=== PATIENT | female | born 1980 | race Caucasian/White ===

== ENCOUNTER 2016-10-12 08:35 | Emergency (ER) | payer MEDICAID ==
[~2016-10-12] VITALS: Ht 165.1 cm; Wt 81.6 kg
[~2016-10-12 08:35] MED LIST: BENZ56AE TP; CEPH250T PO; CEPH500C PO; CLIN300C3 PO; CLN150C PO; CODE-54 PO; IBUP-15 PO; Ibuprofen PO; NAPR-243 PO; OXYC-12 PO; PREN1TAB19 PO; PREN1TAB39 PO; TRM50T PO
[2016-10-12] MEDS ORDERED: LIDOCAINE 1% INJ 20 ML (XYLOCAINE) VIAL ONE (08:52)
[2016-10-12] MEDS ORDERED: fentaNYL INJECTION 100 MCG/2 ML AMP IM ONE (09:00)
[2016-10-12] MEDS ORDERED: fentaNYL INJECTION 100 MCG/2 ML AMP IVP ONE (09:00)
[2016-10-12] MEDS ORDERED: DICL500C PO (09:33)
--- NOTE | 2016-10-12 09:34 | ED Integumentary General ---
General Chief Complaint: Skin/Wound Problems Stated Complaint: POSS ABSCESS UNDER LEFT ARM Nursing Triage Note: ABCESS UNDER L AXILLA, REDDEND PAINFUL AND WARM TO TOUCH Source: patient Exam Limitations: no limitations History of Present Illness Time seen by provider: 08:50 Initial Comments This 36-year-old woman presents to the emergency room with abscess in the left axilla 3 days. She denies any fever. She is currently at about 36 weeks gestational age. Allergies and Home Medications Allergies Coded Allergies: No Known Drug Allergies (Verified , 02/14/08) Home Medications Dicloxacillin Sodium 500 Mg Capsule #28 500 MG PO QID Prescribed by: REMINGTON ALEJANDRE on 10/12/16 0933 Vit/Fe Fumarate/Fa 1 Each Tablet 1 EACH PO DAILY (Reported) Constitutional: no symptoms reported EENTM: no symptoms reported Respiratory: no symptoms reported Cardiovascular: no symptoms reported Gastrointestinal: no symptoms reported Genitourinary: no symptoms reported : Yes Expected Date of Delivery: Nov 08, 2016 Musculoskeletal: no symptoms reported Skin: see HPI Psychiatric/Neurological: No Symptoms Reported Endocrine: No Symptoms Reported Past Czsnymi-Gwopei-Wfydiq Hx Patient Social History Alcohol Use: Denies Use Recreational Drug Use: No Smoking Status: Current Everyday Smoker Recent Foreign Travel: No Contact w/Someone Who Travel: No Recent Infectious Disease Expo: No Recent Hopitalizations: Yes (2 yrs ago at [place], pulled teeth, childbirth) Immunizations Up To Date Tetanus Booster (TDap): Less than 5yrs Date of Influenza Vaccine: Jun 03, 2014 Surgeries HX Surgeries: Yes (LEEP) Respiratory Hx Respiratory Disorders: No Cardiovascular Hx Cardiac Disorders: No Neurological Hx Neurological Disorders: No Reproductive System : Yes Hx : 4 Hx Para: 3 Hx Total # of Abortions (Spona: 0 Hx Reproductive Disorders: No Genitourinary Hx Genitourinary Disorders: No Gastrointestinal Hx Gastrointestinal Disorders: No Musculoskeletal Hx Musculoskeletal Disorders: No Endocrine Hx Endocrine Disorders: No HEENT HX ENT Disorders: No Cancer Hx Cancer: Yes Cancer: Cervical (cervical dysplasia) Psychosocial Hx Psychiatric Problems: No Integumentary HX Skin/Integumentary Disorder: No Blood Transfusions Hx Blood Disorders: No Adverse Reaction to a Blood Tr: No Family Medical History Family Medial History: Arthritis Cardiovascular disease Diabetes mellitus FH: cancer Respiratory disorder Physical Exam Vital Signs Vital Sign - Last 12Hours 10/12/16 08:40 Temp 96.3 Pulse 106 Resp 20 B/P 134/73 Pulse Ox 98 Capillary Refill : Less Than 3 Seconds General Appearance: WD/WN no apparent distress HEENT: PERRL/EOMI normal ENT inspection Cardiovascular: regular rate, rhythm no edema no murmur Respiratory: lungs clear normal breath sounds no respiratory distress no accessory muscle use Gastrointestinal: normal bowel sounds non tender soft other (appropriately gravid) Extremities: normal inspection no pedal edema Neurologic/Psychiatric: payroll processor II-XII nml as tested no motor/sensory deficits alert normal mood/affect oriented x 3 Skin: normal color warm/dry other (large abscess 2-3 cm in size in the left axilla with overlying localized erythema) Skin Problem Character: abscess, erythema I&D : Blade Size: 11 Progress Fentanyl 75 g IM was administered 4 pretreatment. Skin was prepped with chlorhexidine. 1 mL of lidocaine was injected into the overlying skin. A 1.5 cm incision was made over the center of the abscess. A significant amount of purulent material was expressed from the wound. Culture was collected. Wound was explored with hemostats and loculations broken. Very little remaining material was expressed. There is a significant amount of edema and induration around the abscess. Membranous tissue raised the question of possible cyst. Patient tolerated the procedure well. Wound was irrigated with 60 mL of normal saline and dressed. Progress/Results/Core Measures Results/Orders My Orders Orders-REMINGTON STREET MD Lidocaine 1% Injection (Xylocaine 1% Inj (10/12/16 08:52) Fentanyl Injection (Sublimaze Injection (10/12/16 09:00) Wound Culture (10/12/16 09:00) Fentanyl Injection (Sublimaze Injection (10/12/16 09:00) Medications Given in ED Current Medications Medications Dose Ordered Sig/Akira Route Start Time Stop Time Status Last Admin Dose Admin Fentanyl Citrate 75 mcg ONCE ONCE IM 10/12/16 09:00 10/12/16 09:02 DC 10/12/16 09:09 75 MCG Lidocaine HCl 20 ml STK-MED ONCE .ROUTE 10/12/16 08:52 10/12/16 08:56 DC 10/12/16 09:10 10 ML Vital Signs/I&O Vital Sign - Last 12Hours 10/12/16 10/12/16 08:40 09:45 Temp 96.3 Pulse 106 88 Resp 20 20 B/P 134/73 Pulse Ox 98 97 Blood Pressure Mean: 93 Departure Impression Impression: Primary Impression: Cellulitis and abscess of unspecified site Additional Impression: Encounter for incision and drainage procedure Disposition: 01 HOME, SELF-CARE Condition: Improved Departure-Patient Inst. Decision time for Depature: 09:20 Referrals: BALDOMERO MAY DO (PCP/Family) Primary Care Physician Patient Instructions: Abscess Incision and Drainage (DC) Add. Discharge Instructions: Complete your antibiotics as prescribed. Use warm compresses or soak in warm soapy bath water 2 or 3 times a day for the next few days to encourage draining. Return to care if symptoms worsen. If you continued to have fullness or bulging in this area after wound heals and infection resolves, you may have a cyst that needs to be removed. Follow-up with your primary care provider in that case. Follow-up with your doctor in 48 hours to review the wound culture and ensure your antibiotics are appropriate. Use Tylenol for pain. You may use up to 1000 mg every 6 hours as needed for pain. Ibuprofen may not be used after 36 weeks gestational age in . All discharge instructions reviewed with patient and/or family. Voiced understanding. Scripts Dicloxacillin Sodium 500 Mg [id number] Mg PO QID #28 CAP Prov:REMINGTON STREET MD 10/12/16 Copy Copies To 1: BALDOMERO MAY JOSHUA T MD Oct 12, 2016 09:34
[2016-10-12 09:45] VITALS: BP 110/62
[2016-11-01] MEDS ORDERED: IBUP-1773 PO (08:35)
== END 2016-10-12 09:45 | disposition home or self-care (01) ==
LOC: EDUNIT# 08:35 → ER 08:41
DX: L02.412 Cutaneous abscess of left axilla (principal); O99.333 Smoking (tobacco) complicating pregnancy, third trimester; F17.210 Nicotine dependence, cigarettes, uncomplicated; Z3A.36 36 weeks gestation of pregnancy
CPT/HCPCS: 10060; 87070; 87205; 96372

== ENCOUNTER 2016-10-30 20:35 | Inpatient (IN) | payer MEDICAID ==
[~2016-10-30] VITALS: Ht 165.1 cm; Wt 82.2 kg
[2016-10-30] VITALS (7 sets, daily range): BP systolic 108–141; BP diastolic 57–68
[~2016-10-30 20:35] MED LIST changes: +DICL500C PO
[2016-10-30 20:57] LABS: BILIRUBIN,URINE NEGATIVE (NEGATIVE); KETONES,URINE 3+ (NEGATIVE); LEUKOCYTE ESTERASE ,URINE 2+ (NEGATIVE); NITRITE,URINE NEGATIVE (NEGATIVE); PH,URINE 6.5 (5-9); PROTEIN,URINE NEGATIVE (NEGATIVE); UROBILINOGEN,URINE NORMAL (NORMAL)
[2016-10-30] MEDS ORDERED: D5 LR IV SOLUTION 1,000 ML IV ONE (21:04)
[2016-10-30] MEDS ORDERED: D5 LR IV SOLUTION 1,000 ML IV SCH (21:14)
[2016-10-30] MEDS ORDERED: MINERAL OIL CONCENTRATE 99.9% 15 ML UDC TOP PRN (21:15)
[2016-10-30 21:19] LABS: SQUAMOUS EPITHELIAL CELL,UR 25-50 /HPF; WBC,URINE 0-2 /HPF
[2016-10-30] MEDS ORDERED: LACTATED RINGERS 1,000 ML IV ONE ×2 (21:30→22:40)
[2016-10-30 21:42] LABS: BASOPHILS % (AUTO) 0 % (0-10); EOSINOPHILS # (AUTO) 0.1 10^3/uL (0.0-0.3); EOSINOPHILS % (AUTO) 0 % (0-10); LYMPHOCYTES # (AUTO) 2.7 X 10^3 (1.0-4.0); LYMPHOCYTES % (AUTO) 15 % (12-44); MEAN CORPUSCULAR HEMOGLOBIN 33 PG (25-34); MEAN CORPUSCULAR HGB CONC 34 G/DL (32-36); MEAN CORPUSCULAR VOLUME 96 FL (80-99); MEAN PLATELET VOLUME 9.5 FL (7.4-10.4); MONOCYTES # (AUTO) 1.3 X 10^3 (0.0-1.0); MONOCYTES % (AUTO) 7 % (0-12); NEUTROPHILS # (AUTO) 14.5 X 10^3 (1.8-7.8); NEUTROPHILS % (AUTO) 78 % (42-75); PLATELET COUNT 339 10^3/uL (130-400); RED BLOOD COUNT 3.54 10^6/uL (4.35-5.85); WHITE BLOOD COUNT 18.6 10^3/uL (4.3-11.0)
[2016-10-30] MEDS ORDERED: LIDOCAINE/EPI 1%-1:200,000 (XYLOCAINE) 30 ML VIAL ONE (21:54)
[2016-10-30] MEDS ORDERED: OXYTOCIN/NORMAL SALINE 500 ML IV ONE (21:55)
[2016-10-30] MEDS ORDERED: CATHETER FLUSH 10 ML SYR IV SCH (22:00)
[2016-10-30 22:15] LABS: BAND NEUTROPHILS 5 %; BASOPHILS % (MANUAL) 1 %; EOSINOPHILS % (MANUAL) 0 %; LYMPHOCYTES % (MANUAL) 11 %; NEUTROPHILS % (MANUAL) 73 %; REACTIVE LYMPHOCYTES 6 %
[2016-10-30] MEDS ORDERED: SUFENTA 0.6MCG/ML BUPIVA 0.125 100 ML ONE (22:27)
--- NOTE | 2016-10-30 22:33 | History & Physical-OB ---
OB - Chief Complaint & HPI Date Date of Admission: Date of Admission: Oct 30, 2016 at 21:04 Chief Complaint/History OB-Reason for Admission/Chief: Onset of Labor Hx : 4 Hx Para: 3 Expected Date of Delivery: Nov 07, 2016 Gestational Age in Weeks: 38 Allergies and Home Medications Allergies Coded Allergies: No Known Drug Allergies (Verified , 10/30/16) Home Medications Dicloxacillin Sodium 500 Mg Capsule #28 500 MG PO QID Prescribed by: REMINGTON ALEJANDRE on 10/12/16 0933 Vit/Fe Fumarate/Fa 1 Each Tablet 1 EACH PO DAILY (Reported) OB - History Hx of Present Care: Yes Ultrasounds: Normal mid trimester US Obstetrical Complications: None Medical Complications: None Obstetrical History Hx : 4 Hx Para: 3 Number of Living Children: 3 Hx Termination: No Hx Multiple Gestation: No Hx Stillbirth: No Hx Complication: No Hx Induced Hypertens: No Hx Maternal Gestational Diabet: No Delivery History Hx Dystocia: No Hx Large For Gestational Age I: No Hx Small for Gestational Age I: No Hx Section: No Hx Vaginal Delivery Post C-Sec: No Hx Blood Disorders: No Adverse Rxn to Tranfusion: No Patient Past Medical History None Social History/Family History HIV/AIDS: No Recent Infectious Disease Expo: No Alcohol Use: Denies Use Recreational Drug Use: No Immunizations Hepatitis A: Yes Hepatitis B: Yes Tetanus Booster (TDap): Less than 5yrs Date of Influenza Vaccine: May 24, 2016 Rubella: immune RPR/VDRL: Negative GBS Status: Negative HBsAG: Negative OB - Admission Exam Physical Exam Heart: Rhythm Normal Lungs: Clear Abdomen: Gravid Extremities: Normal Cervical Dilatation: 9cm Effacement: 100% Station: -2 Membranes: Ruptured Amniotic Fluid: Thin Meconium Heart Rate: 130's Accelerations: Accelerations Present Decelerations: Variable Decelerations Short Term Variability: Present Contractions on Admission: < 5 Minutes Apart Date/Time Contractions Began;: 1700 Labs Laboratory Tests Test 10/30/16 20:45 10/30/16 21:32 Range/Units Urine Bacteria TRACE /HPF Urine Bilirubin NEGATIVE NEGATIVE Urine Casts NONE /LPF Urine Clarity CLEAR Urine Color YELLOW Urine Crystals NONE /LPF Urine Culture Indicated NO Urine Glucose (UA) NEGATIVE NEGATIVE Urine Ketones 3+ H NEGATIVE Urine Leukocyte Esterase 2+ H NEGATIVE Urine Mucus MODERATE H /LPF Urine Nitrite NEGATIVE NEGATIVE Urine Protein NEGATIVE NEGATIVE Urine RBC RARE /HPF Urine RBC (Auto) 1+ H NEGATIVE Urine Renal Epithelial Cells NONE /HPF Urine Specific [place] 1.015 L 1.016-1.022 Urine Squamous Epithelial Cells 25-50 H /HPF Urine Urobilinogen NORMAL NORMAL MG/DL Urine WBC 0-2 /HPF Urine pH 6.5 5-9 Band Neutrophils 5 % Basophils # (Auto) 0.0 0.0-0.1 10^3/uL Basophils % (Manual) 1 % Basophils (%) (Auto) 0 0-10 % Blood Morphology Comment NORMAL Eosinophils # (Auto) 0.1 0.0-0.3 10^3/uL Eosinophils % (Manual) 0 % Eosinophils (%) (Auto) 0 0-10 % Hematocrit 34 L 35-52 % Hemoglobin 11.7 11.5-16.0 G/DL Lymphocytes # (Auto) 2.7 1.0-4.0 X 10^3 Lymphocytes % (Manual) 11 % Lymphocytes (%) (Auto) 15 12-44 % Mean Corpuscular Hemoglobin 33 25-34 PG Mean Corpuscular Hemoglobin Concent 34 32-36 G/DL Mean Corpuscular Volume 96 80-99 FL Mean Platelet Volume 9.5 7.4-10.4 FL Monocytes # (Auto) 1.3 H 0.0-1.0 X 10^3 Monocytes % (Manual) 4 % Monocytes (%) (Auto) 7 0-12 % Neutrophils # (Auto) 14.5 H 1.8-7.8 X 10^3 Neutrophils % (Manual) 73 % Neutrophils (%) (Auto) 78 H 42-75 % Platelet Count 339 130-400 10^3/uL Reactive Lymphocytes 6 % Red Blood Count 3.54 L 4.35-5.85 10^6/uL Red Cell Distribution Width 14.0 10.0-14.5 % Toxic Granulation 3+ White Blood Count 18.6 H 4.3-11.0 10^3/uL OB - Assessment/Plan/Diagnosis Assessment Assessment: active labor Plan Plan: Expectant Management Other Plan 36 yo @ 38.6 wga admitted for Active labor Plan - Expectant Vaginal delivery - AROM 2220 thin Meconium - Pain: pt desires epidural - GBS - - Blood Type O-, will need Rhogam post delivery CECILIA MORENO MD Oct 30, 2016 22:33
[2016-10-30] MEDS ORDERED: OXYTOCIN/NORMAL SALINE 500 ML IV SCH (23:01)
--- NOTE | 2016-10-30 23:11 | OB Labor & Delivery Record ---
L&D History Date of Service Date of Service: Oct 30, 2016 History Expected Date of Delivery: Nov 07, 2016 Gestational Age in Weeks: 38 Hx : 4 Hx Para: 3 Complications Events: Routine care Operative Indications (Cesarea: N/A-Vaginal Delivery Intrapartal Events: None Other Complications Thin Meconium L&D Stage1 Monitors and Tracing Monitor Mode: External Heart Rate: 120 Monitor Decelerations: Variable Rupture of Membranes Amniotic Membrane Fluid Desc.: Meconium Stained Vaginal Bleeding Description: Normal Show L&D Stage2 Stage Two Stage II Date: Oct 30, 2016 Stage II Time: 22:49 Monitors and Tracing Monitor Mode: External Heart Rate: 120 Monitor Decelerations: Variable Position: Left Occiput Anterior Presentation: Vertex Cord Descript/Complications Cord Vessel Description: 3 Vessels Delivery Type Infant Delivery Method: Spontaneous Vaginal Anterior Shoulder: Right Episiotomy/Perineal Laceration Laceraction(s)/Extensions: No Condition of Infant Delivery Delivery Date & Time: 10/30/16 2249 1 minute Comment: 9 5 minute Comment: 9 Condition of Condition of Infant: Living Exam: No Observed Abnormalities Resuscitation Resuscitation: N/A - Spontaneous Resp L&D Stage3 Stage Three Stage III Date: Oct 30, 2016 Stage III Time: 22:53 Pictocin Pitocin Administration Comment: Wide open Placenta Delivery Placenta Delivery: Spontaneous Delivery Summary Summary Vaginal blood loss >500ml: No 150 Attending at delivery: Tete Condition of Delivery Examined: Cervix Examined Post Hemorrhage: No Condition of Mother Stable Condition of Infant (s) Stable CECILIA MORENO MD Oct 30, 2016 23:11
[2016-10-30] MEDS ORDERED: BENZOCAINE/MENTHOL (DERMOPLAST) 56 ML CAN TP PRN (23:15)
[2016-10-30] MEDS ORDERED: WITCH HAZEL(TUCKS) 40 EA JAR TOP PRN (23:15)
[2016-10-31] VITALS: BP 110/68
[2016-10-31] MEDS: IBUPROFEN 600 MG (MOTRIN) TAB PO SCH ×4 (00:55→20:37)
[2016-10-31 04:45] VITALS: BP 106/61
[2016-10-31] MEDS ORDERED: CATHETER FLUSH 10 ML SYR IV SCH (06:00)
[2016-10-31 06:46] LABS: BASOPHILS % (AUTO) 0 % (0-10); EOSINOPHILS # (AUTO) 0.1 10^3/uL (0.0-0.3); EOSINOPHILS % (AUTO) 0 % (0-10); LYMPHOCYTES # (AUTO) 3.6 X 10^3 (1.0-4.0); LYMPHOCYTES % (AUTO) 15 % (12-44); MEAN CORPUSCULAR HEMOGLOBIN 33 PG (25-34); MEAN CORPUSCULAR HGB CONC 34 G/DL (32-36); MEAN CORPUSCULAR VOLUME 97 FL (80-99); MEAN PLATELET VOLUME 9.9 FL (7.4-10.4); MONOCYTES # (AUTO) 1.7 X 10^3 (0.0-1.0); MONOCYTES % (AUTO) 7 % (0-12); NEUTROPHILS # (AUTO) 18.1 X 10^3 (1.8-7.8); NEUTROPHILS % (AUTO) 77 % (42-75); PLATELET COUNT 341 10^3/uL (130-400); RED BLOOD COUNT 3.12 10^6/uL (4.35-5.85); RED CELL DISTRIBUTION WIDTH 13.7 % (10.0-14.5); WHITE BLOOD COUNT 23.5 10^3/uL (4.3-11.0)
[2016-10-31 09:10] VITALS: BP 111/46
--- NOTE | 2016-10-31 10:40 | Progress Note (SOAP) ---
Subjective Subjective/Events-last exam No concerns this AM. Lochia less then period. Pain controlled with PO meds. Passing Flatus. Tolerating PO and ambulation Date seen by provider: Oct 31, 2016 Objective Exam Last Set of Vital Signs Vital Signs Date Time Temp Pulse Resp B/P Pulse Ox O2 Delivery O2 Flow Rate FiO2 10/31/16 04:45 97.7 70 16 106/61 Room Air Capillary Refill : I&O Bad tableGeneral: Alert, Oriented X3, No Acute Distress Lungs: Clear to Auscultation, Normal Air Movement Heart: Regular Rate, No Murmurs Abdomen: Normal Bowel Sounds, Soft, No Tenderness, Other (Fundus firm and below umbilicus) Extremities: No Edema, No Tenderness/Swelling Results/Procedures Lab Laboratory Tests 10/30/16 20:45: Urine Bacteria TRACE, Urine Bilirubin NEGATIVE, Urine Casts NONE, Urine Clarity CLEAR, Urine Color YELLOW, Urine Crystals NONE, Urine Culture Indicated NO, Urine Glucose (UA) NEGATIVE, Urine Ketones 3+H, Urine Leukocyte Esterase 2+H, Urine Mucus MODERATEH, Urine Nitrite NEGATIVE, Urine Protein NEGATIVE, Urine RBC RARE, Urine RBC (Auto) 1+H, Urine Renal Epithelial Cells NONE, Urine Specific [place] 1.015L, Urine Squamous Epithelial Cells 25-50H, Urine Urobilinogen NORMAL, Urine WBC 0-2, Urine pH 6.5 10/30/16 21:32: Band Neutrophils 5, Basophils # (Auto) 0.0, Basophils % (Manual) 1, Basophils (% ) (Auto) 0, Blood Morphology Comment NORMAL, Eosinophils # (Auto) 0.1, Eosinophils % (Manual) 0, Eosinophils (%) (Auto) 0, Hematocrit 34L, Hemoglobin 11.7, Lymphocytes # (Auto) 2.7, Lymphocytes % (Manual) 11, Lymphocytes (%) (Auto ) 15, Mean Corpuscular Hemoglobin 33, Mean Corpuscular Hemoglobin Concent 34, Mean Corpuscular Volume 96, Mean Platelet Volume 9.5, Monocytes # (Auto) 1.3H, Monocytes % (Manual) 4, Monocytes (%) (Auto) 7, Neutrophils # (Auto) 14.5H, Neutrophils % (Manual) 73, Neutrophils (%) (Auto) 78H, Platelet Count 339, Reactive Lymphocytes 6, Red Blood Count 3.54L, Red Cell Distribution Width 14.0 , Toxic Granulation 3+, White Blood Count 18.6H 10/31/16 06:15: Basophils # (Auto) 0.0, Basophils (%) (Auto) 0, Eosinophils # (Auto) 0.1, Eosinophils (%) (Auto) 0, Hematocrit 30L, Hemoglobin 10.3L, Lymphocytes # (Auto ) 3.6, Lymphocytes (%) (Auto) 15, Mean Corpuscular Hemoglobin 33, Mean Corpuscular Hemoglobin Concent 34, Mean Corpuscular Volume 97, Mean Platelet Volume 9.9, Monocytes # (Auto) 1.7H, Monocytes (%) (Auto) 7, Neutrophils # (Auto ) 18.1H, Neutrophils (%) (Auto) 77H, Platelet Count 341, Red Blood Count 3.12L, Red Cell Distribution Width 13.7, White Blood Count 23.5H Assessment/Plan Assessment/Plan Plan 36 yo G4 now P4 delivered term female infant via Plan - Continue routine post care - Hgb stable, bleeding controlled - Rh neg, needs Rhogam prior to d/c - Bottle feeding , cold compresses to breasts for pain and tenderness - Tdap given during care, Rubella Immune - Continue PNV - Plan for d/c home tomorrow Diagnosis/Problems: Clinical Quality Measures DVT/VTE Risk/Contraindication: Risk Factor Score Per Nursin RFS Level Per Nursing on Admit: 1=Low/No VTE PPX CECILIA MORENO MD Oct 31, 2016 10:40
[2016-10-31 13:30] VITALS: BP 109/68
[2016-10-31 20:30] VITALS: BP 111/70
[2016-11-01 01:55] VITALS: BP 102/61
[2016-11-01] MEDS: IBUPROFEN 600 MG (MOTRIN) TAB PO SCH ×2 (01:55→08:00)
[2016-11-01] MEDS ORDERED: IBUP-1773 PO (08:35)
--- NOTE | 2016-11-01 08:39 | Discharge Instructions ---
Discharge Inst-[facility] Depart Medications New, Converted or Re-Newed RX: Other (OTC medication) Final Diagnosis Vaginal delivery of term female New Medications: Ibuprofen (Ibuprofen) 600 Mg Tablet 600 MG PO Q6H Days 30 TAB Continued Medications: Vit/Fe Fumarate/Fa ( Vitamins Tablet) 1 Each Tablet 1 EACH PO DAILY TAB Discontinued Medications: Dicloxacillin Sodium (Dicloxacillin Sodium) 500 Mg Capsule 500 MG PO QID #28 CAP Follow Up/Instructions Goal/Follow Up: You will need to call and schedule your 6 week post follow up with Dr May Activity Activity: Activity as Tolerated Driving Instructions: You May Drive NO SMOKING: NO SMOKING Nothing Inside Vagina: No Douching, No [place], No Tampons Diet Discharge Diet: No Restrictions Return to The Hospital For: Shortness of breath Chest pain Uncontrolled bleeding Symptoms to Report to : Swelling Increased, Bleeding Excessive, Pain Increased, Fever Over 101 Degrees F, Pain/Pressure in Chest, Nausea/Vomiting, Shortness of Breath, Weight Gain Over 2 Pounds For Any Problems or Questions: Contact Your Physician Skin/Wound Care Bathing Instructions: Shower Copies To 1: BALDOMERO MAY HOLLY R MD Nov 01, 2016 08:39
--- NOTE | 2016-11-01 08:40 | Discharge Summary ---
Diagnosis/Chief Complaint Date of Admission Oct 30, 2016 at 21:04 Date of Discharge 11/01/16 Admission Diagnosis Admission Diagnosis Vaginal delivery of term female infant Discharge Diagnosis See above Chief Complaint/HPI Chief Complaint/HPI Admitted in Active labor Discharge Summary-Simple/Stand Procedures Discharge Physical Examination Allergies: Coded Allergies: No Known Drug Allergies (Verified , 10/30/16) Vitals & I&Os Vital Sign - Last 12Hours Date Time Temp Pulse Resp B/P Pulse Ox O2 Delivery O2 Flow Rate FiO2 11/01/16 01:55 97.5 69 18 102/61 98 Room Air General Appearance: Alert, Oriented X3, Cooperative, No Acute Distress HEENT: Atraumatic, Mucous Memb Moist/Jessie Respiratory: Clear to Auscultation, Normal Air Movement Cardiovascular: Regular Rate, Normal S1, Normal S2, No Murmurs Abdominal: Normal Bowel Sounds, Soft, No Tenderness Extremities: No Clubbing, No Cyanosis, No Edema, No Tenderness/Swelling Skin: No Rashes, No Breakdown Neuro: Normal Gait, Normal Speech, Sensation Intact Psych/Mental Status: Mental Status NL, Mood NL Hospital Course See final discharge diagnosis. Pending Labs None pending Discussion & Recommendations 36 yo F female delivered term female via . Plans to bottle feed. Discharge Condition at discharge Stable Instructions to patient/family Please see electonic discharge instructions given to patient. Discharge Medications Reviewed and agree with Discharge Medication list on patient's Discharge Instruction sheet Clinical Quality Measures DVT/VTE Risk/Contraindication: Risk Factor Score Per Nursin RFS Level Per Nursing on Admit: 1=Low/No VTE PPX Copy Copies To 1: BALDOMERO MAY HOLLY R MD Nov 01, 2016 08:40
[2016-11-01 10:09] VITALS: BP 109/65
== END 2016-11-01 13:15 | disposition home or self-care (01) | DRG 775 ==
LOC: WSo 20:35 → LDRP 20:35 → WSo 21:04 → LDRP 10-31 00:54
PROVIDERS: ADMIT Family Medicine; ATTEND Family Medicine
PROC: 10E0XZZ Delivery of Products of Conception, External Approach (ICD-10-PCS; principal; 2016-10-30)
DX: O80 Encounter for full-term uncomplicated delivery (principal); Z3A.38 38 weeks gestation of pregnancy; Z37.0 Single live birth
CPT/HCPCS: 36415; 81000; 83033; 85007; 85025; 85027; 86850; 86900; 86901; 99212

== ENCOUNTER 2018-02-02 21:29 | Emergency (ER) | payer MEDICAID ==
[~2018-02-02] VITALS: Ht 165.1 cm; Wt 77.1 kg
[~2018-02-02 21:29] MED LIST changes: +IBUP-1773 PO
--- OUTSIDE RECORDS SUMMARY | 2018-02-02 21:34 | XMS REPORT ---
Author Author BALDOMERO MAY [facility] eClinicalWorks Address Unknown Phone Unavailable Care Team Providers Care Six Sigma Black Trainer Name Role Phone BALDOMERO MAY CP Unavailable Allergies, Adverse Reactions, Alerts Substance Reaction Event Type N.K.D.A. Info Not Available Non Drug Allergy Problems Problem Type Condition Code Onset Dates Condition Status Problem Surveillance of other previously prescribed contraceptive method V25.49 Active Problem Screening for iron deficiency anemia V78.0 Active Problem Lumbago 724.2 Active Problem Trigeminal neuralgia 350.1 Active Problem Supervision of normal first V22.0 Active Problem Unspecified contraceptive management V25.9 Active Problem Placenta previa without hemorrhage, unspecified as to episode of care 641.00 Active Problem Headache 784.0 Active Problem Screening for diabetes mellitus V77.1 Active Problem DTAP TEST V06.1 Active Problem Routine follow-up V24.2 Active Problem Other urethritis 597.89 Active Problem state, incidental V22.2 Active Problem Supervision of other normal V22.1 Active Problem Tobacco use disorder complicating , childbirth, or the puerperium, unspecified as to episode of care or not applicable 649.00 Active Problem Nausea alone 787.02 Active Problem Acute sinusitis, unspecified 461.9 Active Problem Cough 786.2 Active Problem Screening for malignant neoplasm of the cervix V76.2 Active Problem Other malaise and fatigue 780.79 Active Problem Screening examination for venereal disease V74.5 Active Problem Unspecified disorder of the teeth and supporting structures 525.9 Active Medications No Known Medications Results No Known Results Summary Purpose eClinicalWorks Submission
--- OUTSIDE RECORDS SUMMARY | 2018-02-02 21:34 | XMS REPORT ---
Author Author BALDOMERO MAY [facility] Address [address] [place] [address] Care Team Providers Care Calibration Checker Name Role Phone BALDOMERO MAY Unavailable PROBLEMS Type Condition ICD9-CM Code TXX42-PL Code Onset Dates Condition Status SNOMED Code Problem Normal in multigravida in third trimester Z34.83 Active 34831066 Problem Normal in second trimester Z34.92 Active 88601269 Problem Rh negative status during , first trimester O09.891 Active 808586554 Problem Normal in multigravida Z34.80 Active 33463062 Problem Plantar wart, right foot B07.0 Active 62948815 Problem Tobacco use affecting in first trimester, antepartum O99.331 Active [id number] ALLERGIES Unknown Allergies SOCIAL HISTORY No smoking Hx information available PLAN OF CARE VITAL SIGNS MEDICATIONS Unknown Medications RESULTS No Results PROCEDURES No Known procedures IMMUNIZATIONS No Known Immunizations
--- OUTSIDE RECORDS SUMMARY | 2018-02-02 21:34 | XMS REPORT ---
Author Author BALDOMERO MAY [facility] eClinicalWorks Address Unknown Phone Unavailable Care Team Providers Care Inpatient Pharmacist Name Role Phone BALDOMERO MAY CP Unavailable Allergies No Known Allergies Problems Problem Type Condition Code Onset Dates [...] teeth and supporting structures 525.9 Active Medications Medication Code System Code Instructions Start Date End Date Status Dosage Zofran [facility] [address]-71 4 MG Orally every 6 hours as needed nausea/ vomitting March 25, 2016 1 tablet Results No Known Results Summary Purpose eClinicalWorks Submission
--- OUTSIDE RECORDS SUMMARY | 2018-02-02 21:34 | XMS REPORT ---
Author Author CAMELIA PLUMMER [facility] eClinicalWorks Address Unknown Phone Unavailable Care Team Providers Care Marketing Producer Name Role Phone CAMELIA PLUMMER CP Unavailable Allergies, Adverse Reactions, Alerts Substance Reaction Event Type N.K.D.A. Info Not Available Non Drug Allergy Problems Problem Type Condition ICD-9 Code Onset Dates Condition Status Problem Other malaise and fatigue 780.79 Active Assessment Tobacco abuse 305.1 Active Problem Unspecified disorder of the teeth and supporting structures 525.9 Active Assessment Cough 786.2 Active Problem Surveillance of other previously prescribed contraceptive method V25.49 Active Problem Screening for iron deficiency anemia V78.0 Active Problem Lumbago 724.2 Active Problem Trigeminal neuralgia 350.1 Active Problem Unspecified contraceptive management V25.9 Active Problem Supervision of normal first V22.0 Active Problem Placenta previa without hemorrhage, unspecified as to episode of care 641.00 Active Problem Headache 784.0 Active Assessment Upper respiratory infection 465.9 Active Problem Screening for diabetes mellitus V77.1 [...] neoplasm of the cervix V76.2 Active Problem Screening examination for venereal disease V74.5 Active Medications No Known Medications Procedures Procedure Coding System Code Date Office Visit, Est Pt., Level 3 CPT-4 04009 May 12, 2015 Vital Signs Date/Time: May 12, 2015 Temperature 97.3 F Weight 170.0 lbs Height 65 in BMI 28.29 Index Blood Pressure Diastolic 74 mmHg Blood Pressure Systolic 116 mmHg Cardiac Monitoring Heart Rate 90 bpm Results No Known Results Summary Purpose eClinicalWorks Submission
--- OUTSIDE RECORDS SUMMARY | 2018-02-02 21:34 | XMS REPORT ---
Author Author BALDOMERO MAY [facility] Address [address] [place] [address] Care Team Providers Care Website Designer Name Role Phone BALDOMERO MAY Unavailable PROBLEMS Type Condition ICD9-CM Code VUR55-ND Code Onset Dates Condition Status SNOMED Code Problem Normal in multigravida in third trimester Z34.83 Active 78792623 Problem Normal in second trimester Z34.92 Active 50515518 Problem Normal in multigravida Z34.80 Active 96026033 Problem Tobacco use affecting in first trimester, antepartum O99.331 Active 983915340 Problem Plantar wart, right foot B07.0 Active 58675286 Problem Rh negative status during , first trimester O09.891 Active 759679632 ALLERGIES No Information SOCIAL HISTORY Never Assessed PLAN OF CARE Activity Details Follow Up 1 Week Reason:ob VITAL SIGNS Height 65 in 2016-10-25 Weight 177.6 lbs 2016-10-25 Temperature 97.0 degrees Fahrenheit 2016-10-25 Heart Rate 78 bpm 2016-10-25 Respiratory Rate 18 2016-10-25 BMI 29.554 kg/m2 2016-10-25 Blood pressure systolic 120 mmHg 2016-10-25 Blood pressure diastolic 70 mmHg 2016-10-25 MEDICATIONS Medication Instructions Dosage Frequency Start Date End Date Duration Status 28-0.8 MG Orally daily 1 tab 24h Mar, Active RESULTS Name Result Date Reference Range UA OB DIP (IN HOUSE) 2016-10-25 Glucose neg Protein neg PROCEDURES Procedure Date Ordered Result Body Site URINE-NO MICRO Oct 25, 2016 IMMUNIZATIONS No Known Immunizations MEDICAL (GENERAL) HISTORY Type Description Date Surgical History LEEP Hospitalization History Childbirth only
--- OUTSIDE RECORDS SUMMARY | 2018-02-02 21:34 | XMS REPORT ---
Author BALDOMERO Guillen [employer] Address Unknown Phone Unavailable Care Team Providers Care Camelid Fiber Sorter Name Role Phone BALDOMERO MAY CP Unavailable Allergies No Known Allergies Problems Problem Type Condition Code Onset Dates Condition Status Problem Plantar wart, right foot B07.0 Active Problem Tobacco use affecting in first trimester, antepartum O99.331 Active Problem Normal in second trimester Z34.92 Active Assessment Normal in second trimester Z34.92 Active Assessment 21 weeks gestation of Z3A.21 Active Problem Rh negative status during , first trimester O09.891 Active Problem Normal in multigravida Z34.80 Active Medications Medication Code System Code Instructions Start Date End Date Status Dosage [facility] [address]-37 1 MG Orally Once a day Apr 26, 2016 1 tablet Procedures Procedure Coding System Code Date URINE-NO MICRO CPT-4 94270 Jun 30, 2016 Office Visit, Est Pt., Level 3 CPT-4 16954 Jun 30, 2016 Vital Signs Date/Time: Jun 30, 2016 Cardiac Monitoring Heart Rate 90 bpm Weight 168.5 lbs Height 65 in BMI 28.04 Index Blood Pressure Diastolic 72 mmHg Blood Pressure Systolic 128 mmHg Results Name Result Date Reference Range Unit Abnormality Flag UA OB DIP (IN HOUSE) ----Glucose Negative 20160630 ----Protein Negative [id number] Summary Purpose eClinicalWorks Submission
--- OUTSIDE RECORDS SUMMARY | 2018-02-02 21:34 | XMS REPORT ---
Author Author BALDOMERO MAY Organization [facility] Address [address] [place] [address] Care Team Providers Care Currency Examiner Name Role Phone BALDOMERO MAY Unavailable PROBLEMS Type Condition ICD9-CM Code [id number] Code Onset Dates Condition Status SNOMED Code Problem Normal in multigravida in third trimester Z34.83 Active 03497580 Problem Normal in second trimester Z34.92 Active 52982973 Problem Normal in multigravida Z34.80 Active 35604191 Problem Tobacco use affecting in first trimester, antepartum O99.331 Active 990650351 Problem Plantar wart, right foot B07.0 Active 65166828 Problem Rh negative status during , first trimester O09.891 Active 534502645 ALLERGIES No Information SOCIAL HISTORY Never Assessed PLAN OF CARE Activity Details Follow Up 1 Week Reason:ob VITAL SIGNS Height 65 in 2016-10-04 Weight 179.0 lbs 2016-10-04 Temperature 97.6 degrees Fahrenheit 2016-10-04 BMI 29.787 kg/m2 2016-10-04 Blood pressure systolic 128 mmHg 2016-10-04 Blood pressure diastolic 78 mmHg 2016-10-04 MEDICATIONS Medication Instructions Dosage Frequency Start Date End Date Duration Status 28-0.8 MG Orally daily 1 tab 24h Mar, Active RESULTS Name Result Date Reference Range UA OB DIP (IN HOUSE) 2016-10-04 Glucose negative Protein 1+ CULTURE, GROUP B STREP (VAGINAL) 2016-10-04 Strep Gp B Culture Negative Negative PROCEDURES Procedure Date Ordered Result Body Site URINE-NO MICRO Oct 04, 2016 LAB NOT BILLED BY [facility] Oct 04, 2016 IMMUNIZATIONS No Known Immunizations MEDICAL (GENERAL) HISTORY Type Description Date Surgical History LEEP Hospitalization History Childbirth only
--- OUTSIDE RECORDS SUMMARY | 2018-02-02 21:34 | XMS REPORT ---
Author Author FADUMO GRIFFIN Organization [facility] Address [address] [place] [address] Care Team Providers Care Roller Hand Name Role Phone FADUMO GRIFFIN Unavailable PROBLEMS Type Condition ICD9-CM Code WMO93-QS Code Onset Dates Condition Status SNOMED Code Problem Tobacco use affecting in first trimester, antepartum O99.331 Active 282370626 Problem Rh negative status during , first trimester O09.891 Active 852688169 Problem Normal in multigravida Z34.80 Active 90718792 Assessment Plantar wart of right foot B07.0 Apr, Active 23098688 ALLERGIES Substance Reaction Event Type Date Status N.K.D.A. Unknown Non Drug Allergy Apr, Unknown SOCIAL HISTORY No smoking Hx information available PLAN OF CARE VITAL SIGNS Height 65 in 2016-05-06 Weight 159 lbs 2016-05-06 Heart Rate 80 bpm 2016-05-06 Respiratory Rate 18 2016-05-06 BMI 26.46 kg/m2 2016-05-06 Blood pressure systolic 116 mmHg 2016-05-06 Blood pressure diastolic 72 mmHg 2016-05-06 MEDICATIONS Medication Instructions Dosage Frequency Start Date End Date Duration Status Zofran 4 MG Orally every 6 hours as needed nausea/vomitting 1 tablet Feb, Active Vol-Care Rx 1 MG Orally Once a day 1 tablet 24h Mar, 30 day(s) Active 28-0.8 MG Orally daily 1 tab 24h Mar, Active RESULTS No Results PROCEDURES Procedure Date Ordered Related Diagnosis Body Site Office Visit, Est Pt., Level 2 May 06, 2016 IMMUNIZATIONS No Known Immunizations
--- OUTSIDE RECORDS SUMMARY | 2018-02-02 21:35 | XMS REPORT ---
Author Author BALDOMERO MAY [facility] Address [address] [place] [address] Care Team Providers Care Leaf Sticker Name Role Phone BALDOMERO MAY Unavailable PROBLEMS Type Condition ICD9-CM Code RIU16-GK Code Onset Dates Condition Status SNOMED Code Problem Normal in multigravida in third trimester Z34.83 Active 57889240 Problem Normal in second trimester Z34.92 Active 24199372 Problem Normal in multigravida Z34.80 Active 12433990 Problem Tobacco use affecting in first trimester, antepartum O99.331 Active 058858363 Problem Plantar wart, right foot B07.0 Active 20431199 Problem Rh negative status during , first trimester O09.891 Active 274915856 ALLERGIES No Known Allergies SOCIAL HISTORY No smoking Hx information available PLAN OF CARE Activity Details Follow Up 2 Weeks Reason:ob VITAL SIGNS Height 65 in 2016-09-20 Weight 177.7 lbs 2016-09-20 Temperature 97.9 degrees Fahrenheit 2016-09-20 Heart Rate 88 bpm 2016-09-20 Respiratory Rate 20 2016-09-20 BMI 29.571 kg/m2 2016-09-20 Blood pressure systolic 130 mmHg 2016-09-20 Blood pressure diastolic 67 mmHg 2016-09-20 MEDICATIONS Medication Instructions Dosage Frequency Start Date End Date Duration Status 28-0.8 MG Orally daily 1 tab 24h Mar, Active RESULTS Name Result Date Reference Range UA OB DIP (IN HOUSE) 2016-09-20 Glucose Negative Protein Trace PROCEDURES Procedure Date Ordered Related Diagnosis Body Site URINE-NO MICRO Sep 20, 2016 Office Visit, Est Pt., Level 3 Sep 20, 2016 IMMUNIZATIONS No Known Immunizations
--- OUTSIDE RECORDS SUMMARY | 2018-02-02 21:35 | XMS REPORT ---
Author Author BALDOMERO MAY [facility] Address [address] [place] [address] Care Team Providers Care Railroad Car Repairman Name Role Phone YADIRABALDOMERO Unavailable PROBLEMS Type Condition ICD9-CM Code ITD75-RQ Code Onset Dates Condition Status SNOMED Code Problem Normal in multigravida in third trimester Z34.83 Active 89909225 Problem Normal in second trimester Z34.92 Active 20423414 Problem Normal in multigravida Z34.80 Active 91379256 Problem Tobacco use affecting in first trimester, antepartum O99.331 Active 442375543 Problem Plantar wart, right foot B07.0 Active 18557389 Problem Rh negative status during , first trimester O09.891 Active 783397634 ALLERGIES No Known Allergies ENCOUNTERS Encounter Location Date Diagnosis [address] [address] December, [address] [address] Nov, [facility] [address] [place] [address] Sep, [facility] [address] [place] [address] Aug, Sebaceous cyst L72.[address] [address] Aug, Encounter for Depo-Provera contraception Z30.42 [facility] [address] [place] [address] Aug, Chills R68.83 and Influenza A J10.1 [facility] [address] [place] [address] [place] [address] Jul, Sebaceous cyst L72.3 [place] [id number] [place] [address] May, Encounter for [facility]o-Provera [facility] Z30.42 [facility] [address] [place] [address] Apr, Cellulitis of buttock L03.317 [place] [id number] [place] [address]- [address] Feb, Encounter for Depo-Provera contraception Z30.42 [facility] [id number] [place] [address] December, Abscess L02.91 [place] [id number] [place] [address] Nov, Encounter for Depo-Provera contraception Z30.42 [facility] [id number] [id number] Nov, [place] [id number] [place] [address]- [address] Oct, Mastitis N61.0 [place] [id number] [place] [address]- [address] Sep, Normal in multigravida in third trimester Z34.83 and 38 weeks gestation of Z3A.38 [place] [id number] [place] [address]- [address] 20 Sep, 2016 Normal in multigravida in third trimester Z34.83 and 37 weeks gestation of Z3A.37 [place] [address] [place] [address]- 44[address] 13 Sep, 2016 Normal in multigravida in third trimester Z34.83 ; 36 weeks gestation of Z3A.36 and Cutaneous abscess of left axilla L02.412 [place] [address] [place] [address] Sep, Normal in multigravida in third trimester Z34.83 ; screening for streptococcus B Z36 and 35 weeks gestation of Z3A.35 [facility] [id number] [place] [address] Aug, Normal in multigravida in third trimester Z34.83 and 33 weeks gestation of Z3A.33 [place] [address] [address] Aug, Normal in multigravida in third trimester Z34.83 ; 31 weeks gestation of Z3A.31 and Encounter for immunization Z23 [place] [id number] [place] [address] Jul, Normal in multigravida in third trimester Z34.83 ; 28 weeks gestation of Z3A.28 and Rh negative status during , third trimester O09.893 [facility] [id number] [place] [address] Jul, [facility] [id number] [place] [address]- [address] Jul, [facility] [id number] [place] [address]- 59[address] Jul, [facility] [id number] [place] [address]- 3834 Jul, Encounter for dental examination Z01.20 [facility] [id number] [place] [address]- [address] Jun, Normal in multigravida Z34.80 and 25 weeks gestation of Z3A.25 [facility] [id number] [place] [address]- [address] Jun, [facility] [id number] [place] [address]78- 1768 Jun, Normal in second trimester Z34.92 and 21 weeks gestation of Z3A.21 [facility] [address], [place] [address] May, Plantar wart, right foot B07.0 [facility] [address], [place] [address] Apr, Normal in multigravida Z34.80 ; 16 weeks gestation of Z3A.16 and Encounter for immunization Z23 [facility] [address] [place] [address]- [address] Apr, Plantar wart of right foot B07.0 [place] [id number] [place] [address] 6[address] Mar, Normal in multigravida in first trimester Z34.81 and 12 weeks gestation of Z3A.12 [facility] [address] [place] [address] Mar, Upper respiratory tract infection, unspecified type J06.9 [facility] [address], [place] [address] Mar, [place] [address] [place] [address] Mar, care in first trimester Z34.91 ; Normal in multigravida in first trimester Z34.81 ; Tobacco use affecting in first trimester, antepartum O99.331 ; 13 weeks gestation of Z3A.13 and Rh negative status during , first trimester O09.891 [facility] [address], [place] [address] Feb, [facility] [id number] [place] [address] Feb, [facility] [id number] [address] Feb, confirmed by positive urine test Z32.01 [place] [address] [address] 14 Apr, 2015 Upper respiratory infection 465.9 ; Cough 786.2 and Tobacco abuse 305.1 [facility] [address] [facility] [id number] [place] [address] 14 Nov, 2014 [facility] [id number] [address]- [address] Nov, [facility] [address] [facility] [id number] [place] [address] Oct, [facility] [address] [facility] [id number] [place] [address]- [address]27 Oct, [facility] [id number], [place] [address] Aug, [facility] [address] [address]- [address] Aug, [facility] [id number], [place] [address] Jun, [facility] [id number] [address] Jun, [facility] [id number], [place] [address] Jun, [facility] [address], [place] [address]- [address] Jun, [facility] [place] [facility] [address] [facility] [id number], [place] [address] Jun, [facility] [place] [facility] [address] [facility] [id number], [place] [address] Jun, [facility] [place] [facility] [address] [facility] [id number], [place] [address]- [address] Jun, [facility] [place] [facility] [id number], [place] [address]- [address] Jun, [facility] [address] [facility] [id number] [place] [address]- 6063 30 May, 2014 [facility] [place] [facility] [address] [id number] [place] [address]- [address] May, [facility] [place] [facility] [address] [id number] [place] [address]- 7006 May, [facility] [place] [facility] [address] [id number] [place] [address]- 2262 May, [facility] [place] [facility] [address] [id number] [place] [address]- 6862 May, [facility] [place] [facility] [address] [id number] [place] [address]- 2351 May, [facility] [place] [facility] [address] [id number] [place] [address]- 5370 May, [facility] [place] [facility] [address] [id number] [place] [address]- 5341 May, [facility] [place] [facility] [address] [id number] [place] [address]- 5416 22 Apr, 2013 [facility] [place] [facility] [address] [id number] [place] [address] 2543 22 Apr, 2013 [facility] [place] [facility] [address] [id number] [place] [address]- 2548 15 Apr, 2013 [facility] [place] [facility] [address] [id number] [place] [address] 2546 15 Apr, 2013 [facility] [place] [facility] [address] [id number] [place] [address]- 2546 11 Apr, 2013 [facility] [place] [facility] [address] [id number] [place] [address] 2546 11 Apr, 2013 [facility] [place] [facility] [address] [id number] [place] [address]- 2546 10 Apr, 2013 [facility] [place] [facility] [address] [id number] [place] [address] 2549 Apr, [facility] [place] [facility] [address] [id number] [place] [address]- 9673 Mar, [facility] [place] [facility] [address] [id number] [place] [address]- 7223 Mar, [facility] [place] [facility] [address] [id number] [place] [address]- 7694 Feb, [facility] [place] [facility] [address] [id number] [place] [address]- 8575 Feb, [facility] [place] [facility] [address] [id number] [place] [address]- 6476 Feb, [facility] [place] [facility] [address] [id number] [place] [address]- 0927 Feb, [facility] [place] [facility] [address] [id number] [place] [address]- 4680 Jan, [facility] [place] [facility] [address] [id number] [place] [address]- 3291 Jan, [facility] [place] [facility] [address] [id number] [place] [address]- 4506 Jan, [facility] [place] [facility] [address] [id number] [place] [address]- 8052 Jan, [facility] [place] [facility] [address] [id number] [place] [address]- 7948 Jan, [facility] [place] [facility] [address] [id number] [place] [address]- 1417 Jan, [facility] [place] [facility] [address] [id number] [place] [address]- 1716 Nov, [facility] [place] [facility] [address] [id number] [place] [address]- 4778 Nov, [facility] [place] [facility] [address] [id number] [place] [address]- 3657 Nov, [facility] [place] [facility] [address] [id number] [place] [address]- 3864 Nov, [facility] [place] [facility] [address] [id number] [place] [address]- 5328 Nov, [facility] [place] [facility] [address] [id number] [place] [address]- 3431 Nov, [facility] [place] [facility] [address] [id number] [place] [address]- 9393 Nov, [facility] [place] [facility] [address] [id number] [place] [address]- 4573 Nov, [facility] [place] [facility] [address] [id number] [place] [address]- 5160 Nov, [facility] [place] [facility] [address] [id number] [place] [address]- 8961 Nov, [facility] [place] [facility] [address] [id number] [place] [address]- 7840 Nov, [facility] [place] [facility] [address] [id number] [place] [address]- 0112 Oct, [facility] [place] [facility] [address] [id number] [place] [address]- 3839 Oct, [facility] [place] [facility] [address] [id number] [place] [address]- 1288 Oct, [facility] [place] [facility] [address] [id number] [place] [address]- 0870 Oct, [facility] [place] [facility] [address] [id number] [place] [address]- 5945 Jul, [facility] [place] [facility] [address] [id number] [place] [address] Jul, [facility] [place] [facility] [address] [id number] [place] [address] Jun, [facility] [place] [facility] [address] [id number] [place] [address] Jun, [facility] [place] [facility] [address] [id number] [place] [address]- 2546 17 Apr, 2013 [facility] [address] [id number] [place] [address]- 9736 Nov, [facility] [address] [id number] [place] [address]- 2546 Nov, [facility] [address] [id number] [place] [address]- 4586 Aug, [facility] [address] [id number] [place] [address]- 2546 May, [facility] [address] [id number] [place] [address]- 2546 Sep, [facility] [address] [id number] [place] [address]- 2546 Sep, [facility] [address] [id number] [place] [address]- 2656 Aug, [facility] [address] [id number] [place] [address]- 0566 Aug, [facility] [address] [id number] [place] [address]- 9466 Jul, [facility] [address] [id number] [place] [address]- 9036 Jul, [facility] [address] [id number] [place] [address]- 0866 Jul, [facility] [address] [id number] [place] [address]- 8566 Jul, [facility] [place] [facility] [address] [id number] [place] [address]- 3426 Jul, [facility] [address] [id number] [place] [address]- 2546 2011 [facility] [address] [id number] [place] [address]- 3519 Jul, [facility] [address], [place] [address]- [address] Jun, [facility] [address], [place] [address]- 9515 Jun, [facility] [address], [place] [address]- 7[address] May, [facility] [id number] [place] [address] 9[address]657- 7185 May, [facility] [address] [place] [address] 62293- 4656 May, [facility] [id number] [place] [address] 454003- 4492 May, [facility] [id number], [place] [address]- 8280 May, [facility] [address], [place] [address]- 2850 May, [facility] [address], [place] [address]- 9264 Feb, [facility] [address], [place] [address] Jan, [facility] [id number], [place] [address] May, IMMUNIZATIONS Vaccine Route Administration Date Status DEPO PROVERA (150 MG/ML) IM Intramuscular May 30, 2017 Administered SOCIAL HISTORY Never Assessed REASON FOR VISIT Depo Provera injection---MAKAYLA Miranda PLAN OF CARE VITAL SIGNS MEDICATIONS Medication Instructions Dosage Frequency Start Date End Date Duration Status Vol-Care Rx 1 MG Orally Once a day 1 tablet 24h Mar, 30 day(s) Active 28-0.8 MG Orally daily 1 tab 24h Mar, Active Dicloxacillin Sodium 500 MG Orally every 8 hrs 1 capsule after meals 8h Active Zofran 4 MG Orally every 6 hours as needed nausea/vomitting 1 tablet Feb, Active RESULTS Name Result Date Reference Range TEST, URINE (IN HOUSE) 2017-05-30 RESULTS Negative Lot # [id number] Control + Exp date 16/09/30 PROCEDURES Procedure Date Ordered Result Body Site URINE TEST May 30, 2017 DEPO PROVERA (150 MG/ML) May 30, 2017 THER/PROPH/DIAG INJ, SC/IM May 30, 2017 INSTRUCTIONS MEDICATIONS ADMINISTERED No Known Medications MEDICAL (GENERAL) HISTORY Type Description Date Surgical History LEEP Hospitalization History Childbirth only
--- OUTSIDE RECORDS SUMMARY | 2018-02-02 21:35 | XMS REPORT ---
Author BALDOMERO Guillen [facility] eClinicalWorks Address Unknown Phone Unavailable Care Team Providers Care Station Chief Name Role Phone BALDOMERO MAY CP Unavailable Allergies No Known Allergies Problems Problem Type Condition Code Onset Dates Condition Status Problem Plantar wart, right foot B07.0 Active Problem Tobacco use affecting in first trimester, antepartum O99.331 Active Problem Normal in second trimester Z34.92 Active Problem Rh negative status during , first trimester O09.891 Active Problem Normal in multigravida Z34.80 Active Medications No Known Medications Results No Known Results Summary Purpose eClinicalWorks Submission
--- OUTSIDE RECORDS SUMMARY | 2018-02-02 21:35 | XMS REPORT ---
Author Author BALDOMERO MAY [facility] eClinicalWorks Address Unknown Phone Unavailable Care Team Providers Care Photographic Colorist Name Role Phone BALDOMERO MAY CP Unavailable [...] as to episode of care 641.00 Active Assessment confirmed by positive urine test Z32.01 Active Problem Headache 784.0 Active Problem Screening [...] structures 525.9 Active Medications No Known Medications Procedures Procedure Coding System Code Date URINE TEST CPT-4 54411 March 17, 2016 Results No Known Results Summary Purpose eClinicalWorks Submission
--- OUTSIDE RECORDS SUMMARY | 2018-02-02 21:35 | XMS REPORT ---
Author Author SARY CROWDER [facility] eClinicalWorks Address Unknown Phone Unavailable Care Team Providers Care Microphone Operator Name Role Phone SARY CROWDER CP Unavailable Allergies, Adverse Reactions, Alerts Substance Reaction Event Type N.K.D.A. Info Not Available Non Drug Allergy Problems Problem Type Condition Code Onset Dates Condition Status Problem Rh negative status during , first trimester O09.891 Active Problem Normal in multigravida Z34.80 Active Problem Tobacco use affecting in first trimester, antepartum O99.331 Active Assessment Upper respiratory tract infection, unspecified type J06.9 Active Medications Medication Code System Code Instructions Start Date End Date Status Dosage Zofran [facility] [address]-30 4 MG Orally every 6 hours as needed nausea/ vomitting March 25, 2016 1 tablet [facility] [address]-49182 28-0.8 MG Orally daily Apr 07, 2016 1 tab Zithromax [facility] [address]-39 250 MG Orally Once a day Apr 18, 2016 Apr 23, 2016 2 tablets on the first day, then 1 tablet daily for 4 days Procedures Procedure Coding System Code Date Office Visit, Est Pt., Level 3 CPT-4 11198 Apr 18, 2016 Vital Signs Date/Time: Apr 18, 2016 Cardiac Monitoring Heart Rate 76 bpm Weight 157.6 lbs Height 65 in BMI 26.22 Index Blood Pressure Diastolic 78 mmHg Blood Pressure Systolic 130 mmHg Results No Known Results Summary Purpose eClinicalWorks Submission
--- OUTSIDE RECORDS SUMMARY | 2018-02-02 21:35 | XMS REPORT ---
Author Author BALDOMERO MAY [facility] Address [address] [place] [address] Care Team Providers Care Special Education Paraeducator Name Role Phone BALDOMERO MAY Unavailable PROBLEMS Type Condition ICD9-CM Code [id number] Code Onset Dates Condition Status SNOMED Code Problem Normal in multigravida in third trimester Z34.83 Active 45510458 Problem Normal in second trimester Z34.92 Active 46889772 Problem Rh negative status during , first trimester O09.891 Active 798762432 Problem Normal in multigravida Z34.80 Active 21273208 Problem Plantar wart, right foot B07.0 Active 34856859 Problem Tobacco use affecting in first trimester, antepartum O99.331 Active 066374945 ALLERGIES Substance Reaction Event Type Date Status N.K.D.A. Unknown Non Drug Allergy Jul, Unknown SOCIAL HISTORY No smoking Hx information available PLAN OF CARE Activity Details Follow Up 2 Weeks Reason:ob VITAL SIGNS Height 65 in 2016-08-18 Weight 174 lbs 2016-08-18 Temperature 98.0 degrees Fahrenheit 2016-08-18 Heart Rate 90 bpm 2016-08-18 Respiratory Rate 20 2016-08-18 BMI 28.955 kg/m2 2016-08-18 Blood pressure systolic 104 mmHg 2016-08-18 Blood pressure diastolic 70 mmHg 2016-08-18 MEDICATIONS Medication Instructions Dosage Frequency Start Date End Date Duration Status 28-0.8 MG Orally daily 1 tab 24h Mar, Active RESULTS Name Result Date Reference Range UA LONG DIP (IN HOUSE) 2016-08-18 Lot # [id number] Exp date 07/15 Clarity clear Color yellow Odor none GLU negative CHRIS negative KET negative SG 1.015 BLO negative pH >=9.0 Protein negative URO 0.2 NIT negative HELEN trace Lot # Exp date GLUCOSE RAUL 1 HOUR 2016-08-18 Gestational Diabetes Screen 117 65-139 CBC 2016-08-18 WBC 16.5 3.4-10.8 RBC 3.44 3.77-5.28 Hemoglobin 11.9 11.1-15.9 Hematocrit 33.7 34.0-46.6 MCV 98 79-97 MCH 34.6 26.6-33.0 MCHC 35.3 31.5-35.7 RDW 13.4 12.3-15.4 Platelets 322 150-379 Neutrophils 82 Lymphs 12 Monocytes 6 Eos 0 Basos 0 Immature Cells Neutrophils (Absolute) 13.5 1.4-7.0 Lymphs (Absolute) 2.0 0.7-3.1 Monocytes(Absolute) 1.0 0.1-0.9 Eos (Absolute) 0.0 0.0-0.4 Baso (Absolute) 0.0 0.0-0.2 Immature Granulocytes Immature Grans (Abs) Hematology Comments: Note: PROCEDURES Procedure Date Ordered Related Diagnosis Body Site NON-STRESS TEST 2016-08-18 N/A LAB NOT BILLED BY [facility] Aug 18, 2016 NON-STRESS TEST Aug 18, 2016 VENIPUNCT, ROUTINE* Aug 18, 2016 URINALYSIS, AUTO, W/O SCOPE Aug 18, 2016 Office Visit, Est Pt., Level 3 Aug 18, 2016 THER/PROPH/DIAG INJ, SC/IM Aug 18, 2016 RH IG, FULL-DOSE, IM Aug 18, 2016 IMMUNIZATIONS Vaccine Route Administration Date Status RHOGAM FULL DOSE IM Intramuscular Aug 18, 2016 Administered
--- OUTSIDE RECORDS SUMMARY | 2018-02-02 21:36 | XMS REPORT ---
Author Author BALDOMERO MAY [facility] Address [address] [place] [address] Care Team Providers Care Behavioral Geneticist Name Role Phone BALDOMERO MAY Unavailable PROBLEMS Type Condition ICD9-CM Code [id number] Code Onset Dates Condition Status SNOMED Code Problem Normal in multigravida in third trimester Z34.83 Active 82799080 Problem Normal in second trimester Z34.92 Active 70160807 Problem Normal in multigravida Z34.80 Active 60853499 Problem Tobacco use affecting in first trimester, antepartum O99.331 Active 025897518 Problem Plantar wart, right foot B07.0 Active 05471793 Problem Rh negative status during , first trimester O09.891 Active 257449691 ALLERGIES Substance Reaction Event Type Date Status N.K.D.A. Unknown Non Drug Allergy Aug, Unknown SOCIAL HISTORY No smoking Hx information available PLAN OF CARE Activity Details Follow Up 2 Weeks Reason:ob VITAL SIGNS Height 65 in 2016-09-06 Weight 173.6 lbs 2016-09-06 Temperature 97.9 degrees Fahrenheit 2016-09-06 Heart Rate 88 bpm 2016-09-06 Respiratory Rate 20 2016-09-06 BMI 28.889 kg/m2 2016-09-06 Blood pressure systolic 124 mmHg 2016-09-06 Blood pressure diastolic 72 mmHg 2016-09-06 MEDICATIONS Medication Instructions Dosage Frequency Start Date End Date Duration Status 28-0.8 MG Orally daily 1 tab 24h Mar, Active RESULTS Name Result Date Reference Range UA OB DIP (IN HOUSE) 2016-09-06 Glucose Negative Protein Negative PROCEDURES Procedure Date Ordered Related Diagnosis Body Site URINE-NO MICRO Sep 06, 2016 Office Visit, Est Pt., Level 3 Sep 06, 2016 SINGLE IMMUNIZATION ADMIN Sep 06, 2016 TDAP (BOOSTRIX) Sep 06, 2016 IMMUNIZATIONS Vaccine Route Administration Date Status TDAP (BOOSTRIX) IM Intramuscular Sep 06, 2016 Administered
--- OUTSIDE RECORDS SUMMARY | 2018-02-02 21:36 | XMS REPORT ---
Author Author SARY CROWDER Organization [facility] Address [address] [place] [address] Care Team Providers Care Cdl Company Driver Name Role Phone SARY CROWDER Unavailable PROBLEMS Type Condition ICD9-CM Code ZZO64-[id number] Code Onset Dates Condition Status SNOMED Code Problem Normal in multigravida in third trimester Z34.83 Active 30520425 Problem Normal in second trimester Z34.92 Active 63332501 Problem Normal in multigravida Z34.80 Active 65134504 Problem Tobacco use affecting in first trimester, antepartum O99.331 Active 558748151 Problem Plantar wart, right foot B07.0 Active 26028566 Problem Rh negative status during , first trimester O09.891 Active 796535917 ALLERGIES No Known Allergies SOCIAL HISTORY Never Assessed PLAN OF CARE Activity Details Follow Up prn Reason: VITAL SIGNS Height 65 in 2017-01-17 Weight 167.2 lbs 2017-01-17 Temperature 97.7 degrees Fahrenheit 2017-01-17 Heart Rate 80 bpm 2017-01-17 Respiratory Rate 20 2017-01-17 BMI 27.82 kg/m2 2017-01-17 Blood pressure systolic 124 mmHg 2017-01-17 Blood pressure diastolic 82 mmHg 2017-01-17 MEDICATIONS Medication Instructions Dosage Frequency Start Date End Date Duration Status Bactrim DS 800-160 MG Orally Twice a day 1 tablet 12h December, Jan, 10 day(s) Active RESULTS Name Result Date Reference Range CULTURE, ANAEROBIC AND AEROBIC 2017-01-17 Anaerobic Culture Final report Aerobic Culture Final report Result 1 Result 1 PROCEDURES Procedure Date Ordered Result Body [facility] 2017 IMMUNIZATIONS No Known Immunizations MEDICAL (GENERAL) HISTORY Type Description Date Surgical History LEEP Hospitalization History Childbirth only
--- OUTSIDE RECORDS SUMMARY | 2018-02-02 21:36 | XMS REPORT ---
Author BALDOMERO Guillen [facility] eClinicalWorks Address Unknown Phone Unavailable Care Team Providers Care Physicist Nuclear Name Role Phone BALDOMERO MAY CP Unavailable Allergies No Known Allergies Problems Problem Type Condition Code Onset Dates Condition Status Problem Rh negative status during , first trimester O09.891 Active Problem Normal in multigravida Z34.80 Active Problem Tobacco use affecting in first trimester, antepartum O99.331 Active Medications Medication Code System Code Instructions Start Date End Date Status Dosage [facility] [address]46 28-0.8 MG Orally daily Apr 07, 2016 1 tab Results No Known Results Summary Purpose eClinicalWorks Submission
--- OUTSIDE RECORDS SUMMARY | 2018-02-02 21:36 | XMS REPORT ---
Author SRI Gusman [facility] eClinicalWorks Address Unknown Phone Unavailable Care Team Providers Care Business Test Analyst Name Role Phone SRI SOLIZ CP Unavailable Allergies, Adverse Reactions, Alerts Substance Reaction Event Type N.K.D.A. Info Not Available Non Drug Allergy Problems Problem Type Condition Code Onset Dates Condition Status Problem Tobacco use affecting in first trimester, antepartum O99.331 Active Problem Rh negative status during , first trimester O09.891 Active Problem Plantar wart, right foot B07.0 Active Problem Normal in multigravida Z34.80 Active Assessment Plantar wart, right foot B07.0 Active Medications Medication Code System Code Instructions Start Date End Date Status Dosage Zofran [facility] [address]-81 4 MG Orally every 6 hours as needed nausea/ vomitting March 25, 2016 1 tablet Vol-Care Rx [facility] [address]-66 1 MG Orally Once a day Apr 26, 2016 1 tablet Procedures Procedure Coding System Code Date Office Visit, Est Pt., Level 2 CPT-4 87879 Jun 01, 2016 Vital Signs Date/Time: Jun 01, 2016 Cardiac Monitoring Heart Rate 96 bpm Weight 159.6 lbs Height 65 in BMI 26.56 Index Blood Pressure Diastolic 60 mmHg Blood Pressure Systolic 102 mmHg Results No Known Results Summary Purpose eClinicalWorks Submission
--- OUTSIDE RECORDS SUMMARY | 2018-02-02 21:36 | XMS REPORT ---
Author Author BALDOMERO MAY [facility] Address [address] [place] [address] Care Team Providers Care Communicable Disease Specialist Name Role Phone BALDOMERO MAY Unavailable PROBLEMS Type Condition ICD9-CM Code NMJ70-DA Code Onset Dates Condition Status SNOMED Code Problem Normal in multigravida in third trimester Z34.83 Active 31207324 Problem Normal in second trimester Z34.92 Active 44593001 Problem Normal in multigravida Z34.80 Active 32574527 Problem Tobacco use affecting in first trimester, antepartum O99.331 Active 157110737 Problem Plantar wart, right foot B07.0 Active 63131579 Problem Rh negative status during , first trimester O09.891 Active 587581328 ALLERGIES No Known Allergies SOCIAL HISTORY Never Assessed PLAN OF CARE Activity Details Follow Up 1 Week Reason:ob VITAL SIGNS Height 65 in 2016-10-11 Weight 180 lbs 2016-10-11 Temperature 98.6 degrees Fahrenheit 2016-10-11 Heart Rate 90 bpm 2016-10-11 Respiratory Rate 20 2016-10-11 BMI 29.954 kg/m2 2016-10-11 Blood pressure systolic 112 mmHg 2016-10-11 Blood pressure diastolic 70 mmHg 2016-10-11 MEDICATIONS Medication Instructions Dosage Frequency Start Date End Date Duration Status 28-0.8 MG Orally daily 1 tab 24h Mar, Active Clindamycin HCl 150 MG Orally every 6 hrs 1 capsule 6h Sep,Sep 07 days Active RESULTS Name Result Date Reference Range UA OB DIP (IN HOUSE) 2016-10-11 Glucose negative Protein trace PROCEDURES Procedure Date Ordered Result Body Site URINE-NO MICRO Oct 11, 2016 IMMUNIZATIONS No Known Immunizations MEDICAL (GENERAL) HISTORY Type Description Date Surgical History LEEP Hospitalization History Childbirth only
--- OUTSIDE RECORDS SUMMARY | 2018-02-02 21:36 | XMS REPORT ---
Author Author BALDOMERO MAY [facility] eClinicalWorks Address Unknown Phone Unavailable Care Team Providers Care On Site Services Specialist Name Role Phone BALDOMERO MAY CP Unavailable Allergies, Adverse Reactions, Alerts Substance Reaction Event Type N.K.D.A. Info Not Available Non Drug Allergy Problems Problem Type Condition Code Onset Dates Condition Status Assessment Rh negative status during , first trimester O09.891 Active Problem Rh negative status during , first trimester O09.891 Active Problem Normal in multigravida Z34.80 Active Problem Tobacco use affecting in first trimester, antepartum O99.331 Active Assessment Tobacco use affecting in first trimester, antepartum O99.331 Active Assessment 13 weeks gestation of Z3A.13 Active Assessment care in first trimester Z34.91 Active Assessment Normal in multigravida in first trimester Z34.81 Active Medications Medication Code System Code Instructions Start Date End Date Status Dosage Zofran [facility] [address]-46 4 MG Orally every 6 hours as needed nausea/ vomitting March 25, 2016 1 tablet Procedures Procedure Coding System Code Date ASSAY THYROID STIM HORMONE CPT-4 85298 Apr 05, 2016 DRUG SCREEN NON TLC DEVICES CPT-4 22573 Apr 05, 2016 RBC ANTIBODY SCREEN CPT-4 68312 Apr 05, 2016 VENIPUNCT, ROUTINE* CPT-4 88828 Apr 05, 2016 URINALYSIS, AUTO, W/O SCOPE CPT-4 23075 Apr 05, 2016 COMPLETE CBC W/AUTO DIFF WBC CPT-4 24281 Apr 05, 2016 No Charge CPT-4 97233 Apr 05, 2016 Office Visit, Est Pt., Level 3 CPT-4 44621 Apr 05, 2016 URINE CULTURE/COLONY COUNT CPT-4 10558 Apr 05, 2016 Vital Signs Date/Time: Apr 05, 2016 Cardiac Monitoring Heart Rate 84 bpm Weight 161.0 lbs Height 65 in BMI 26.792 Index Blood Pressure Diastolic 77 mmHg Blood Pressure Systolic 131 mmHg Results No Known Results Summary Purpose eClinicalWorks Submission
--- OUTSIDE RECORDS SUMMARY | 2018-02-02 21:36 | XMS REPORT ---
Author Author BALDOMERO MAY [facility] Address [address] [place] [address] Care Team Providers Care Pierce And Shave Press Operator Name Role Phone YADIRABALDOMERO Unavailable PROBLEMS Type Condition ICD9-CM Code UFM28-DY Code Onset Dates Condition Status SNOMED Code Problem Normal in multigravida in third trimester Z34.83 Active 70335449 Problem Normal in second trimester Z34.92 Active 23394317 Problem Normal in multigravida Z34.80 Active 25185019 Problem Tobacco use affecting in first trimester, antepartum O99.331 Active 436801202 Problem Plantar wart, right foot B07.0 Active 39740248 Problem Rh negative status during , first trimester O09.891 Active 038769291 ALLERGIES No Information ENCOUNTERS Encounter Location Date Diagnosis [facility] [address] [address] Sep, [facility] [address] [address] Aug, Sebaceous cyst L72.3 [facility] [id number] [place] [address] Aug, Encounter for Depo-Provera contraception Z30.42 [facility] [id number] [place] [address] Aug, Chills R68.83 and Influenza A J10.1 [facility] [address] [place] [address] Jul, Sebaceous cyst L72.3 [facility] [id number] [place] [address] May, Encounter for Depo-Provera contraception Z30.42 [facility] [id number], [place] [address] Apr, Cellulitis of buttock L03.317 [address] [address], [place] [address] Feb, Encounter for Depo-Provera contraception Z30.42 [facility] [address], [place] [address] December, Abscess L02.91 [place] [address], [place] [address] Nov, Encounter for Depo-Provera contraception Z30.42 [facility]ie [facility]EN[facility] [address] [id number] [id number] Nov, [place] [address] [address], [place] [address] Oct, Mastitis N61.0 [place] [id number] [place] [address] Sep, Normal in multigravida in third trimester Z34.83 and 38 weeks gestation of Z3A.38 [place] [address], [place] [address] Sep, Normal in multigravida in third trimester Z34.83 and 37 weeks gestation of Z3A.37 [place] [address], [place] [address] Sep, Normal in multigravida in third trimester Z34.83 ; 36 weeks gestation of Z3A.36 and Cutaneous abscess of left axilla L02.412 [place] [address], [place] [address] 06 Sep, 2016 Normal in multigravida in third trimester Z34.83 ; screening for streptococcus B Z36 and 35 weeks gestation of Z3A.35 [place] [id number] [place] [address] Aug, Normal in multigravida in third trimester Z34.83 and 33 weeks gestation of Z3A.33 [place] [id number] [place] [address] 6[address] Aug, Normal in multigravida in third trimester Z34.83 ; 31 weeks gestation of Z3A.31 and Encounter for immunization Z23 [facility] [id number] [place] [address] Jul, Normal in multigravida in third trimester Z34.83 ; 28 weeks gestation of Z3A.28 and Rh negative status during , third trimester O09.893 [facility] [id number] [place] [address] Jul, [place] [id number] [place] [address] Jul, [place] [id number] [place] [address] Jul, [place] [id number] [place] [address] 73[address] Jul, Encounter for dental examination Z01.20 [place] [id number] [place] [address] Jun, Normal in multigravida Z34.80 and 25 weeks gestation of Z3A.25 [facility] [id number] [place] [address] Jun, [place] [id number] [place] [address] 2[address] Jun, Normal in second trimester Z34.92 and 21 weeks gestation of Z3A.21 [place] [id number] [place] [address]- [address] May, Plantar wart, right foot B07.0 [place] [id number] [place] [address] Apr, Normal in multigravida Z34.80 ; 16 weeks gestation of Z3A.16 and Encounter for immunization Z23 [place] [id number] [place] [address]- 9[address] Apr, Plantar wart of right foot B07.0 [place] [address] [address] Mar, Normal in multigravida in first trimester Z34.81 and 12 weeks gestation of Z3A.12 [facility] [id number] [place] [address] Mar, Upper respiratory tract infection, unspecified type J06.9 [place] [id number] [place] [address] Mar, [place] [id number] [place] [address] Mar, care in first trimester Z34.91 ; Normal in multigravida in first trimester Z34.81 ; Tobacco use affecting in first trimester, antepartum O99.331 ; 13 weeks gestation of Z3A.13 and Rh negative status during , first trimester O09.891 [place] [id number] [place] [address] Feb, [place] [id number] [place] [address] 13423- 0942 Feb, [place] [id number] [place] [address] 134[address]- 65[address] Feb, confirmed by positive urine test Z32.01 [place] [id number] [place] [address]- 84[address] 14 Apr, 2015 Upper respiratory infection 465.9 ; Cough 786.2 and Tobacco abuse 305.1 [place] [address] [address] 14 Nov, 2014 [facility] [place] [facility] [address] [id number] [place] [address] Nov, [facility] [place] [facility] [address] [id number] [place] [address] 27[address] Oct, [facility] [place] [facility] [address] [id number] [place] [address]- 295[address] Oct, [facility] [place] [facility] [address] [id number] [place] [address] 8169 Aug, [facility] [place] [facility] [address] [id number] [place] [address] Aug, [facility] [place] [facility] [address] [id number] [place] [address]- 1416 Jun, [facility] [place] [facility] [address] [id number] [place] [address]- 0449 Jun, [facility] [place] [facility] [address] [id number] [place] [address]- 7166 Jun, [facility] [place] [facility] [address] [id number] [place] [address] 6804 Jun, [facility] [place] [facility] [address] [id number] [place] [address] 99[address] Jun, [facility] [place] [facility] [address] [id number], [place] [address] Jun, [facility] [place] [facility] [address] [id number] [address] Jun, [facility] [place] [facility] [address] [id number] [place] [address]- 8489 Jun, [facility] [place] [facility] [address] [id number] [place] [address] 1194 May, [facility] [place] [facility] [address] [id number] [place] [address]- 7708 May, [facility] [place] [facility] [address] [id number] [place] [address]- 112[address] May, [facility] [place] [facility] [address] [id number] [place] [address]- 5636 May, [facility] [place] [facility] [address] [id number] [place] [address]- 6132 May, [facility] [place] [facility] [address] [id number] [place] [address]- 2904 May, [facility] [place] [facility] [address] [id number] [place] [address]- 3091 May, [facility] [place] [facility] [address] [id number] [place] [address]- 5267 May, [facility] [place] [facility] [address] [id number] [place] [address]- 3862 22 Apr, 2014 [facility] [place] [facility] [address] [id number] [place] [address]- 0512 22 Apr, 2014 [facility] [place] [facility] [address] [id number] [place] [address]- 8420 15 Apr, 2013 [facility] [place] [facility] [address] [id number] [place] [address]- 8504 15 Apr, 2014 [facility] [place] [facility] [address] [id number] [place] [address]- 6459 11 Apr, 2014 [facility] [place] [facility] [address] [id number] [place] [address]- 6167 11 Apr, 2014 [facility] [place] [facility] [address] [id number] [place] [address]- 2540 10 Apr, 2013 [facility] [place] [facility] [address] [id number] [place] [address]- 9105 10 Apr, 2014 [facility] [place] [facility] [address] [id number] [place] [address]- 8281 18 Mar, 2014 [facility] [place] [facility] [address] [id number] [place] [address]- 2087 Mar, [facility] [place] [facility] [address] [id number] [place] [address]- 9277 Feb, [facility] [place] [facility] [address] [id number] [place] [address]- 8648 Feb, [facility] [place] [facility] [address] [id number] [place] [address]- 60[address] Feb, [facility] [place] [facility] [address] [id number] [place] [address]- 7278 Feb, [facility] [place] [facility] [address] [id number] [place] [address]- 46[address] Jan, [facility] [place] [facility] [address] [id number] [place] [address]- 4039 Jan, [facility] [place] [facility] [address] [id number] [place] [address]- 9346 Jan, [facility] [place] [facility] [address] [id number] [place] [address]- 9876 Jan, [facility] [place] [facility] [address] [id number] [place] [address]- 9646 Jan, [facility] [place] [facility] [address] [id number] [place] [address]- 1548 Jan, [facility] [place] [facility] [address] [id number] [place] [address]- 4736 Nov, [facility] [place] [facility] [address] [id number] [place] [address]- 1087 Nov, [facility] [place] [facility] [address] [id number] [place] [address]- 7374 Nov, [facility] [place] [facility] [address] [id number] [place] [address]- 5129 Nov, [facility] [place] [facility] [address] [id number] [place] [address]- 3996 Nov, [facility] [place] [facility] [address] [id number] [place] [address]- 5394 14 Nov, 2013 [facility] [place] [facility] [address] [id number] [place] [address]- 3989 14 Nov, 2013 [facility] [place] [facility] [address] [id number] [place] [address]- 6390 Nov, [facility] [place] [facility] [address] [id number] [place] [address]- 9934 Nov, [facility] [place] [facility] [address] [id number] [place] [address]- 1707 Nov, [facility] [place] [facility] [address] [id number] [place] [address]- 6950 Nov, [facility] [place] [facility] [address] [id number] [place] [address]- 1202 Oct, [facility] [place] [facility] [address] [id number] [place] [address]- 2266 Oct, [facility] [place] [facility] [address] [id number] [place] [address]- 0283 Oct, [facility] [place] [facility] [address] [id number] [place] [address]- 2300 24 Oct, 2013 [facility] [place] [facility] [address] [id number] [place] [address]- 9090 Jul, [facility] [place] [facility] [address] [id number] [place] [address]- 3110 18 Jul, 2013 [facility] [place] [facility] [address] [id number] [place] [address]- 8228 16 Jun, 2013 [facility] [place] [facility] [address] [id number] [place] 3794 16 Jun, 2013 [facility] [place] [facility] [address] [id number] [place] [address] 17 Apr, 2013 [facility] [place] [facility] [address] [id number] [place] [address] 03 Nov, 2012 [facility] [place] [facility] [address] [id number] [place] [address]- 2546 Nov, [facility] [address] [id number] [place] [address]- 2896 Aug, [facility] [place] [facility] [address] [id number] [place] [address]- 2546 May, [facility] [address] [id number] [place] [address]- 2546 Sep, [facility] [place] [facility] [address] [id number] [place] [address]- 2546 Sep, [facility] [address] [id number] [place] [address]- 2546 Aug, [facility] [address] [id number] [place] [address]- 2546 Aug, [facility] [address] [id number] [place] [address]- 4396 Jul, [facility] [address] [id number] [place] [address]- 5572 Jul, [facility] [address] [id number] [place] [address]- 0047 Jul, [facility] [address] [id number] [place] [address]- 4327 Jul, [facility] [address] [id number] [place] [address]- 5983 Jul, [facility] [address] [id number] [place] [address]- 2546 Jul, [facility] [place] [facility] [address] [id number] [place] [address]- 2546 Jul, [facility] [place] [facility] [address] [id number] [place] [address]- 2546 Jun, [facility] [place] [facility] [address] [id number] [place] [address]- 2546 Jun, [facility] [address] [id number], [place] [address] 5546 May, [facility] [address] [facility] [id number], [place] [address]- 0386 May, [facility] [address] [facility] [id number], [place] [address]- 6006 May, [facility] [address] [facility] [id number], [place] [address]- 2546 May, [facility] [address] [facility] [id number], [place] [address]- 7320 May, [facility] [address] [facility] [id number], [place] [address]- 3016 May, [facility] [address], [place] [address]- 0666 Feb, [facility] [address], [place] [address] Jan, [facility] [address] [id number], [place] [address] 5544 May, IMMUNIZATIONS Vaccine Route Administration Date Status DEPO PROVERA (150 MG/ML) IM Intramuscular March 04, 2017 Administered SOCIAL HISTORY Never Assessed REASON FOR VISIT Depo Provera injection--DBennettRCristo PLAN OF CARE Activity Details Follow Up 3 Months Reason: VITAL SIGNS MEDICATIONS No Known Medications RESULTS Name Result Date Reference Range TEST, URINE (IN HOUSE) 2017-03-04 RESULTS negative Lot # [id number] Control + Exp date 04/28/18 PROCEDURES Procedure Date Ordered Result Body Site URINE TEST March 04, 2017 DEPO PROVERA (150 MG/ML) March 04, 2017 THER/PROPH/DIAG INJ, SC/IM March 04, 2017 INSTRUCTIONS MEDICATIONS ADMINISTERED No Known Medications MEDICAL (GENERAL) HISTORY Type Description Date Surgical History LEEP Hospitalization History Childbirth only
--- OUTSIDE RECORDS SUMMARY | 2018-02-02 21:36 | XMS REPORT ---
Author BALDOMERO Guillen [employer] Address Unknown Phone Unavailable Care Team Providers Care Virology Teacher Name Role Phone BALDOMERO MAY CP Unavailable Allergies, Adverse Reactions, Alerts Substance Reaction Event Type N.K.D.A. Info Not Available Non Drug Allergy Problems Problem Type Condition Code Onset Dates Condition Status Problem Rh negative status during , first trimester O09.891 Active Problem Normal in multigravida Z34.80 Active Problem Tobacco use affecting in first trimester, antepartum O99.331 Active Assessment Encounter for immunization Z23 Active Assessment Normal in multigravida Z34.80 Active Assessment 16 weeks gestation of Z3A.16 Active Medications Medication Code System Code Instructions Start Date End Date Status Dosage Zofran [facility] [address]-02 4 MG Orally every 6 hours as needed nausea/ vomitting March 25, 2016 1 tablet Vol-Care Rx [facility] [address]-15 1 MG Orally Once a day Apr 26, 2016 1 tablet Procedures Procedure Coding System Code Date [facility] CPT-4 NOBLL May 24, 2016 Office Visit, Est Pt., Level 3 CPT-4 18638 May 24, 2016 URINE-NO MICRO CPT-4 68794 May 24, 2016 SINGLE IMMUNIZATION ADMIN CPT-4 35222 May 24, 2016 FLUARIX QUAD P-FREE 3 AND UP .50 2015 CPT-4 69892 May 24, 2016 VENIPUNCT, ROUTINE* CPT-4 57491 May 24, 2016 Vital Signs Date/Time: May 24, 2016 Cardiac Monitoring Heart Rate 92 bpm Weight 162.6 lbs Height 65 in BMI 27.058 Index Blood Pressure Diastolic 70 mmHg Blood Pressure Systolic 118 mmHg Results No Known Results Immunizations Vaccine Administration Date FLUARIX QUAD P-FREE 3 AND UP .50 2015May 24, 2016 Summary Purpose eClinicalWorks Submission
--- OUTSIDE RECORDS SUMMARY | 2018-02-02 21:36 | XMS REPORT ---
Author Author BALDOMERO MAY [facility] Address [address] [place] [address] Care Team Providers Care Felt Cutter Name Role Phone BALDOMERO MAY Unavailable PROBLEMS Type Condition ICD9-CM Code OVR46-DF Code Onset Dates Condition Status SNOMED Code Problem Normal in second trimester Z34.92 Active 49887658 Problem Plantar wart, right foot B07.0 Active 51474576 Problem Normal in multigravida Z34.80 Active 58555154 Problem Tobacco use affecting in first trimester, antepartum O99.331 Active 623275317 Problem Rh negative status during , first trimester O09.891 Active 262461964 ALLERGIES Unknown Allergies SOCIAL HISTORY No smoking Hx information available PLAN OF CARE VITAL SIGNS MEDICATIONS Unknown Medications RESULTS No Results PROCEDURES No Known procedures IMMUNIZATIONS No Known Immunizations
--- OUTSIDE RECORDS SUMMARY | 2018-02-02 21:36 | XMS REPORT ---
Author BALDOMERO Guillen [facility] eClinical[employer] Address Unknown Phone Unavailable Care Team Providers Care Prosthetic Aides Teacher Name Role Phone BALDOMERO MAY CP Unavailable Allergies, Adverse Reactions, Alerts Substance Reaction Event Type N.K.D.A. Info Not Available Non Drug Allergy Problems Problem Type Condition Code Onset Dates Condition Status Problem Rh negative status during , first trimester O09.891 Active Problem Normal in multigravida Z34.80 Active Problem Tobacco use affecting in first trimester, antepartum O99.331 Active Assessment Normal in multigravida in first trimester Z34.81 Active Assessment 12 weeks gestation of Z3A.12 Active Medications Medication Code System Code Instructions Start Date End Date Status Dosage Vol-Care Rx [facility] [address]-87 1 MG Orally Once a day Apr 26, [address] [facility] [address]224 28-0.8 MG Orally daily Apr 07, 2016 1 tab Procedures Procedure Coding System Code Date Office Visit, Est Pt., Level 3 CPT-4 06096 Apr 26, 2016 URINE-NO MICRO CPT-4 72016 Apr 26, 2016 Vital Signs Date/Time: Apr 26, 2016 Cardiac Monitoring Heart Rate 90 bpm Weight 158.4 lbs Height 65 in BMI 26.359 Index Blood Pressure Diastolic 78 mmHg Blood Pressure Systolic 124 mmHg Results No Known Results Summary Purpose eClinicalWorks Submission
--- OUTSIDE RECORDS SUMMARY | 2018-02-02 21:36 | XMS REPORT ---
Author Author BALDOMERO MAY [facility] Address [address] [place] [address] Care Team Providers Care Fur Drummer Name Role Phone BALDOMERO MAY Unavailable PROBLEMS Type Condition ICD9-CM Code [id number] Code Onset Dates Condition Status SNOMED Code Assessment 25 weeks gestation of Z3A.25 Jun, Active 94926409 Problem Normal in second trimester Z34.92 Active 22552546 Problem Plantar wart, right foot B07.0 Active 74155420 Problem Normal in multigravida Z34.80 Active 54832268 Assessment Normal in multigravida Z34.80 Jun, Active 48430642 Problem Tobacco use affecting in first trimester, antepartum O99.331 Active 396571660 Problem Rh negative status during , first trimester O09.891 Active 657013929 ALLERGIES Unknown Allergies SOCIAL HISTORY No smoking Hx information available PLAN OF CARE VITAL SIGNS Height 65 in 2016-07-28 Weight 172.0 lbs 2016-07-28 Heart Rate 86 bpm 2016-07-28 Respiratory Rate 20 2016-07-28 BMI 28.622 kg/m2 2016-07-28 Blood pressure systolic 120 mmHg 2016-07-28 Blood pressure diastolic 82 mmHg 2016-07-28 MEDICATIONS Medication Instructions Dosage Frequency Start Date End Date Duration Status 28-0.8 MG Orally daily 1 tab 24h Mar, Active Zofran 4 MG Orally every 6 hours as needed nausea/vomitting 1 tablet Feb, Active RESULTS No Results PROCEDURES Procedure Date Ordered Related Diagnosis Body Site URINE-NO MICRO Jul 28, 2016 Office Visit, Est Pt., Level 3 Jul 28, 2016 IMMUNIZATIONS No Known Immunizations
--- OUTSIDE RECORDS SUMMARY | 2018-02-02 21:36 | XMS REPORT ---
Author Author BALDOMERO MAY [facility] Address [address] [place] [address] Care Team Providers Care Cognos Report Developer Name Role Phone BALDOMERO MAY Unavailable PROBLEMS Type Condition ICD9-CM Code BVW43-JC Code Onset Dates Condition Status SNOMED Code Problem Normal in multigravida in third trimester Z34.83 Active 48081795 Problem Normal in second trimester Z34.92 Active 97723025 Problem Normal in multigravida Z34.80 Active 23448209 Problem Tobacco use affecting in first trimester, antepartum O99.331 Active 305233188 Problem Plantar wart, right foot B07.0 Active 77696309 Problem Rh negative status during , first trimester O09.891 Active 750225114 ALLERGIES No Information SOCIAL HISTORY Never Assessed PLAN OF CARE Activity Details Follow Up 1 Week Reason:ob VITAL SIGNS Height 65 in 2016-10-18 Weight 177.3 lbs 2016-10-18 Temperature 97.7 degrees Fahrenheit 2016-10-18 Heart Rate 90 bpm 2016-10-18 Respiratory Rate 20 2016-10-18 BMI 29.504 kg/m2 2016-10-18 Blood pressure systolic 122 mmHg 2016-10-18 Blood pressure diastolic 77 mmHg 2016-10-18 MEDICATIONS Medication Instructions Dosage Frequency Start Date End Date Duration Status 28-0.8 MG Orally daily 1 tab 24h Mar, Active Dicloxacillin Sodium 500 MG Orally every 8 hrs 1 capsule after meals 8h Active RESULTS Name Result Date Reference Range UA OB DIP (IN HOUSE) 2016-10-18 Glucose Negative Protein 1+ PROCEDURES Procedure Date Ordered Result Body Site URINE-NO MICRO Oct 18, 2016 IMMUNIZATIONS No Known Immunizations MEDICAL (GENERAL) HISTORY Type Description Date Surgical History LEEP Hospitalization History Childbirth only
[2018-02-02] MEDS ORDERED: SULF1TAB35 PO (22:41)
--- NOTE | 2018-02-02 22:42 | ED Integumentary General ---
General Chief Complaint: Skin/Wound Problems Stated Complaint: L ARMPIT CYST Source: patient Exam Limitations: no limitations History of Present Illness Date Seen by Provider: Feb 02, 2018 Time Seen by Provider: 22:37 Initial Comments to ER with an abscess left axilla present for 2 days without fevers chills nausea or vomiting. History of these.LMP 01/10/18, she is on Depo-Provera injection Timing/Duration: getting worse Severity: moderate Allergies and Home Medications Allergies Coded Allergies: No Known Drug Allergies (Verified , 10/30/16) Home Medications Ibuprofen 600 Mg Tablet, 600 MG PO Q6H Prescribed by: CECILIA MORENO on 11/01/16 0835 Vit/Fe Fumarate/Fa 1 Each Tablet, 1 EACH PO DAILY, (Reported) Patient Home Medication List Home Medication List Reviewed: Yes Constitutional: see HPI; No chills, No fever EENTM: see HPI Respiratory: no symptoms reported Cardiovascular: no symptoms reported Genitourinary: no symptoms reported Musculoskeletal: no symptoms reported Skin: see HPI Past Etqjoxi-Ibzqum-Uhpzvp Hx Patient Social History Alcohol Use: Denies Use Recreational Drug Use: No Smoking Status: Current Everyday Smoker Type Used: Cigarettes Recent Foreign Travel: No Contact w/Someone Who Travel: No Recent Hopitalizations: No Physical Abuse: No Sexual Abuse: No Mistreated: No Fear: No Immunizations Up To Date Tetanus Booster (TDap): Less than 5yrs Date of Influenza Vaccine: May 24, 2016 Seasonal Allergies Seasonal Allergies: No Past Medical History Surgeries: Yes (Hx of LEEP) Respiratory: No Cardiac: No Neurological: No Reproductive Disorders: No HIV/AIDS: No Genitourinary: No Gastrointestinal: No Musculoskeletal: No Endocrine: No HEENT: No Cancer: No Cervical Psychosocial: No Nursing Suicide Risk Score: 0 Integumentary: No Blood Disorders: No Adverse Reaction/Blood Tranf: No Family Medical History Arthritis (on mother's and father's side of family) Cardiovascular disease (uncles on mother's side of family) Diabetes mellitus (uncles on mother's side of family) FH: cancer (liver CA- uncle skin CA) Respiratory disorder (COPD- mother ) Physical Exam Vital Signs Capillary Refill : General Appearance: WD/WN, no apparent distress HEENT: PERRL/EOMI, normal ENT inspection Neck: non-tender, full range of motion Respiratory: no respiratory distress, no accessory muscle use Gastrointestinal: normal bowel sounds, non tender Neurologic/Psychiatric: alert, normal mood/affect Skin: normal color, warm/dry Skin Problem Location: upper extremities Skin Problem Character: abscess, other (wwarm fluctuant abscess to left axilla but with no surrounding cellulitis) Procedures/Interventions I&D : Blade Size: 11 I & D Procedure: betadine prep Progress aanesthetized with 1 mL of 2% lidocaine without epinephrine, scrubbed with Betadine swab, incised 1 cm laceration with 11 blade scalpel. Moderate amount of premature material expressed. Culture collected and sent to lab. Covered with gauze. Progress/Results/Core Measures Results/Orders My Orders Orders - LUL CANTRELL APRN Rx-Hydrocodone/Apap 5-325 Mg (Rx-Vicodin (02/02/18 22:45) Sulfamethoxazole/Trimet Ds Tab (Bactrim (02/02/18 22:45) Wound Culture (02/02/18 22:35) Departure Impression Primary Impression: Abscess of left axilla Disposition: 01 HOME, SELF-CARE Condition: Stable Departure-Patient Inst. Decision time for Depature: 22:40 Referrals: [facility] [place]/Family) Primary Care Physician Patient Instructions: Abscess Incision and Drainage (DC) Add. Discharge Instructions: 1. Warm compresses to this area. Antibiotics as directed. You may shower allowing water run over this. Keep the gauze in place to collect any drainage that we'll continue over the next 2-3 days.All discharge instructions reviewed with patient and/or family. Voiced understanding. Scripts Sulfamethoxazole/Trimethoprim (Bactrim Ds Tablet) 1 Each Tablet 1 EACH PO BID, #14 TAB Prov: LUL CANTRELL APRN 02/02/18 LUL CANTRELL APRN Feb 02, 2018 22:41
[2018-02-02 22:45] VITALS: BP 0/0
[2018-02-02] MEDS ORDERED: RX-HYDROCODONE/APAP 5/325 MG #4 TAB PK PO PRN (22:45)
[2018-02-02] MEDS ORDERED: TRIM/SULFAMETH 160/800 (SEPTRA DS) TAB PO ONE (22:45)
[2018-02-08] MEDS ORDERED: CLIN300C11 PO (11:49)
== END 2018-02-02 22:45 | disposition home or self-care (01) ==
LOC: EDUNIT# 21:29 → ER 21:31
DX: L02.412 Cutaneous abscess of left axilla (principal); F17.210 Nicotine dependence, cigarettes, uncomplicated; Z85.41 Personal history of malignant neoplasm of cervix uteri; Z80.0 Family history of malignant neoplasm of digestive organs; Z80.8 Family history of malignant neoplasm of other organs or systems
CPT/HCPCS: 10060; 87070; 87205

== ENCOUNTER 2018-10-03 12:56 | Emergency (ER) | payer MEDICAID ==
[~2018-10-03] VITALS: Ht 165.1 cm; Wt 76.2 kg
[~2018-10-03 12:56] MED LIST changes: +CLIN300C11 PO; +SULF1TAB35 PO
--- OUTSIDE RECORDS SUMMARY | 2018-10-03 13:03 | XMS REPORT | Continuity of Care Document ---
Author Author [facility] Address Unknown Phone Unavailable Allergies Active Description Code Type Severity Reaction Onset Reported/Identified Relationship to Patient Clinical Status Yes No Known Drug Allergies [id number] Drug Allergy Mild N/A 02/14/2008 Yes No Known Drug Allergies [id number] Drug Allergy Unknown N/A 10/30/2016 Medications There is no data. Problems Date Dx Coded Attending Type Code Diagnosis Diagnosed By 03/13/2008 V25.49 Surveillance Of Other Contraceptive Method 03/13/2008 V25.49 Surveillance Of Other Contraceptive Method 03/13/2008 V25.49 Surveillance Of Other Contraceptive Method 03/13/2008 V25.49 Surveillance Of Other Contraceptive Method 03/13/2008 ESTEPHANIA MORALES APRN V25.49 Surveillance Of Other Contraceptive Method 03/13/2008 MAY DO BALDOMERO K V25.49 Surveillance Of Other Contraceptive Method 03/13/2008 MAY DO BALDOMERO K V25.49 Surveillance Of Other Contraceptive Method 03/13/2008 ALBA BURGOS APRN V25.49 Surveillance Of Other Contraceptive Method 03/13/2008 MAY DO BALDOMERO K V25.49 Surveillance Of Other Contraceptive Method 03/13/2008 MAY DO BALDOMERO K V25.49 Surveillance Of Other Contraceptive Method 03/13/2008 TADEO NAVA DDS V25.49 Surveillance Of Other Contraceptive Method 03/13/2008 MAY DO BALDOMERO K V25.49 Surveillance Of Other Contraceptive Method 03/13/2008 MAY DO BALDOMERO K V25.49 Surveillance Of Other Contraceptive Method 03/13/2008 MAY DO BALDOMERO K V25.49 Surveillance Of Other Contraceptive Method 03/13/2008 MAY DO BALDOMERO K V25.49 Surveillance Of Other Contraceptive Method 03/13/2008 MAY DO BALDOMERO K V25.49 Surveillance Of Other Contraceptive Method 03/13/2008 MAY DO BALDOMERO K V25.49 Surveillance Of Other Contraceptive Method 03/13/2008 MYNOR MAY DOA K V25.49 Surveillance Of Other Contraceptive Method 03/13/2008 MAY DO BALDOMERO K V25.49 Surveillance Of Other Contraceptive Method 03/13/2008 MAY DOMYNORA K V25.49 Surveillance Of Other Contraceptive Method 03/13/2008 MAY DO BALDOMERO K V25.49 Surveillance Of Other Contraceptive Method 03/13/2008 MAY DO BALDOMERO K V25.49 Surveillance Of Other Contraceptive Method 04/16/2008 V24.2 F/u , Routine 04/16/2008 V24.2 F/u , Routine 04/16/2008 V24.2 F/u , Routine 04/16/2008 V24.2 F/u , Routine 04/16/2008 ESTEPHANIA MORALES APRN V24.2 F/u, Routine 04/16/2008 MAY DOMYNORA K V24.2 F/u, Routine 04/16/2008 MAY DO BALDOMERO K V24.2 F/u, Routine 04/16/2008 ALBA BURGOS APRN V24.2 F/u, Routine 04/16/2008 MAY DOMYNORA K V24.2 F/u, Routine 04/16/2008 MAY DO BALDOMERO K V24.2 F/u, Routine 04/16/2008 TADEO NAVA DDS V24.2 F/u, Routine 04/16/2008 MAY DO BALDOMERO K V24.2 F/u, Routine 04/16/2008 MAY DO BALDOMERO K V24.2 F/u, Routine 04/16/2008 MAY DO BALDOMERO K V24.2 F/u, Routine 04/16/2008 MAY DO, BALDOMERO K V24.2 F/u, Routine 04/16/2008 MAY DO, BALDOMERO K V24.2 F/u, Routine 04/16/2008 MAY DO, BALDOMERO K V24.2 F/u, Routine 04/16/2008 MAY DO, BALDOMERO K V24.2 F/u, Routine 04/16/2008 MAY DO BALDOMERO K V24.2 F/u, Routine 04/16/2008 MAY DO, BALDOMERO K V24.2 F/u, Routine 04/16/2008 MAY DO, BALDOMERO K V24.2 F/u, Routine 04/16/2008 MAY DO, BALDOMERO K V24.2 F/u, Routine 06/19/2009 709.9 Dermatology - Non-infectious 06/19/2009 709.9 Dermatology - Non-infectious 06/19/2009 709.9 Dermatology - Non-infectious 06/19/2009 709.9 Dermatology - Non-infectious 06/19/2009 ESTEPHANIA MORALES APRN 709.9 Dermatology - Non-infectious 06/19/2009 MAY DO, BALDOMERO K 709.9 Dermatology - Non-infectious 06/19/2009 MAY DO, BALDOMERO K 709.9 Dermatology - Non-infectious 06/19/2009 ALBA BURGOS APRN 709.9 Dermatology - Non-infectious 06/19/2009 MAY DO, BALDOMERO K 709.9 Dermatology - Non-infectious 06/19/2009 MAY DO, BALDOMERO K 709.9 Dermatology - Non-infectious 06/19/2009 TADEO NAVA DDS 709.9 Dermatology - Non-infectious 06/19/2009 MAY DO, BALDOMERO K 709.9 Dermatology - Non-infectious 06/19/2009 MAY DO, BALDOMERO K 709.9 Dermatology - Non-infectious 06/19/2009 MAY DO, BALDOMERO K 709.9 Dermatology - Non-infectious 06/19/2009 MAY DO, BALDOMERO K 709.9 Dermatology - Non-infectious 06/19/2009 MAY DO, BALDOMERO K 709.9 Dermatology - Non-infectious 06/19/2009 MAY DO, BALDOMERO K 709.9 Dermatology - Non-infectious 06/19/2009 MAY DO, BALDOMERO K 709.9 Dermatology - Non-infectious 06/19/2009 MAY DO, BALDOMERO K 709.9 Dermatology - Non-infectious 06/19/2009 MAY DO, BALDOMERO K 709.9 Dermatology - Non-infectious 06/19/2009 MAY DO, BALDOMERO K 709.9 Dermatology - Non-infectious 06/19/2009 MAY DO, BALDOMERO K 709.9 Dermatology - Non-infectious 09/03/2010 704.8 Other Specified Diseases Of Hair And Hair Follicles 09/03/2010 707.9 Chronic Skin Ulcer Of Unspecified Site 09/03/2010 704.8 Other Specified Diseases Of Hair And Hair Follicles 09/03/2010 707.9 Chronic Skin Ulcer Of Unspecified Site 09/03/2010 704.8 Other Specified Diseases Of Hair And Hair Follicles 09/03/2010 707.9 Chronic Skin Ulcer Of Unspecified Site 09/03/2010 704.8 Other Specified Diseases Of Hair And Hair Follicles 09/03/2010 707.9 Chronic Skin Ulcer Of Unspecified Site 09/03/2010 ANDREW SEXUAL ASSAULT COUNSELOR, ESTEPHANIA S 704.8 Other Specified Diseases Of Hair And Hair Follicles 09/03/2010 ANDREW SEXUAL ASSAULT COUNSELOR, ESTEPHANIA S 707.9 Chronic Skin Ulcer Of Unspecified Site 09/03/2010 MAY DO, BALDOMERO K 704.8 Other Specified Diseases Of Hair And Hair Follicles 09/03/2010 MAY DO, BALDOMERO K 707.9 Chronic Skin Ulcer Of Unspecified Site 09/03/2010 MAY DO, BALDOMERO K 704.8 Other Specified Diseases Of Hair And Hair Follicles 09/03/2010 MAY DO, BALDOMERO K 707.9 Chronic Skin Ulcer Of Unspecified Site 09/03/2010 LORETTA SEXUAL ASSAULT COUNSELOR, ALBA A 704.8 Other Specified Diseases Of Hair And Hair Follicles 09/03/2010 LORETTA SEXUAL ASSAULT COUNSELOR, ALBA A 707.9 Chronic Skin Ulcer Of Unspecified Site 09/03/2010 MAY DO, BALDOMERO K 704.8 Other Specified Diseases Of Hair And Hair Follicles 09/03/2010 MAY DO, BALDOMERO K 707.9 Chronic Skin Ulcer Of Unspecified Site 09/03/2010 MAY DO, BALDOMERO K 704.8 Other Specified Diseases Of Hair And Hair Follicles 09/03/2010 MAY DO, BALDOMERO K 707.9 Chronic Skin Ulcer Of Unspecified Site 09/03/2010 TADEO NAVA DDS 704.8 Other Specified Diseases Of Hair And Hair Follicles 09/03/2010 TADEO NAVA DDS 707.9 Chronic Skin Ulcer Of Unspecified Site 09/03/2010 MAY DO, BALDOMERO K 704.8 Other Specified Diseases Of Hair And Hair Follicles 09/03/2010 MAY DO BALDOMERO K 707.9 Chronic Skin Ulcer Of Unspecified Site 09/03/2010 MAY DO BALDOMERO K 704.8 Other Specified Diseases Of Hair And Hair Follicles 09/03/2010 MAY DO, BALDOMERO K 707.9 Chronic Skin Ulcer Of Unspecified Site 09/03/2010 MAY DO, BALDOMERO K 704.8 Other Specified Diseases Of Hair And Hair Follicles 09/03/2010 MAY DO, BALDOMERO K 707.9 Chronic Skin Ulcer Of Unspecified Site 09/03/2010 MAY DO, BALDOMERO K 704.8 Other Specified Diseases Of Hair And Hair Follicles 09/03/2010 MAY DO, BALDOMERO K 707.9 Chronic Skin Ulcer Of Unspecified Site 09/03/2010 MAY DO, BALDOMERO K 704.8 Other Specified Diseases Of Hair And Hair Follicles 09/03/2010 MAY DO, BALDOMERO K 707.9 Chronic Skin Ulcer Of Unspecified Site 09/03/2010 MAY DO, BALDOMERO K 704.8 Other Specified Diseases Of Hair And Hair Follicles 09/03/2010 MAY DO, BALDOMERO K 707.9 Chronic Skin Ulcer Of Unspecified Site 09/03/2010 MAY DO, BALDOMERO K 704.8 Other Specified Diseases Of Hair And Hair Follicles 09/03/2010 MAY DO, BALDOMERO K 707.9 Chronic Skin Ulcer Of Unspecified Site 09/03/2010 MAY DO, BALDOMERO K 704.8 Other Specified Diseases Of Hair And Hair Follicles 09/03/2010 MAY DO, BALDOMERO K 707.9 Chronic Skin Ulcer Of Unspecified Site 09/03/2010 MAY DO, BALDOMERO K 704.8 Other Specified Diseases Of Hair And Hair Follicles 09/03/2010 MAY DO, BALDOMERO K 707.9 Chronic Skin Ulcer Of Unspecified Site 09/03/2010 MAY DO, BALDOMERO K 704.8 Other Specified Diseases Of Hair And Hair Follicles 09/03/2010 MAY DO, BALDOMERO K 707.9 Chronic Skin Ulcer Of Unspecified Site 09/03/2010 MAY DO, BALDOMERO K 704.8 Other Specified Diseases Of Hair And Hair Follicles 09/03/2010 MAY DO, BALDOMERO K 707.9 Chronic Skin Ulcer Of Unspecified Site 11/02/2010 705.83 Hidradenitis 11/02/2010 706.2 Sebaceous Cyst 11/02/2010 705.83 Hidradenitis 11/02/2010 706.2 Sebaceous Cyst 11/02/2010 705.83 Hidradenitis 11/02/2010 706.2 Sebaceous Cyst 11/02/2010 705.83 Hidradenitis 11/02/2010 706.2 Sebaceous Cyst 11/02/2010 ANDREW SEXUAL ASSAULT COUNSELOR, ESTEPHANIA S 705.83 Hidradenitis 11/02/2010 ANDREW SEXUAL ASSAULT COUNSELOR, ESTEPHANIA S 706.2 Sebaceous Cyst 11/02/2010 MAY DO, BALDOMERO K 705.83 Hidradenitis 11/02/2010 MAY DO, BALDOMERO K 706.2 Sebaceous Cyst 11/02/2010 MAY DO, BALDOMERO K 705.83 Hidradenitis 11/02/2010 MAY DO, BALDOMERO K 706.2 Sebaceous Cyst 11/02/2010 LORETTA SEXUAL ASSAULT COUNSELOR, ALBA A 705.83 Hidradenitis 11/02/2010 LORETTA SEXUAL ASSAULT COUNSELOR, ALBA A 706.2 Sebaceous Cyst 11/02/2010 MAY DO, BALDOMERO K 705.83 Hidradenitis 11/02/2010 MAY DO, BADLOMERO K 706.2 Sebaceous Cyst 11/02/2010 MAY DO, BALDOMERO K 705.83 Hidradenitis 11/02/2010 MAY DO, BALDOMERO K 706.2 Sebaceous Cyst 11/02/2010 NAVA DDS, TADEO 705.83 Hidradenitis 11/02/2010 NAVA DDS, TADEO 706.2 Sebaceous Cyst 11/02/2010 MAY DO, BALDOMERO K 705.83 Hidradenitis 11/02/2010 MAY DO, BALDOMERO K 706.2 Sebaceous Cyst 11/02/2010 MAY DO, BALDOMERO K 705.83 Hidradenitis 11/02/2010 MAY DO, BALDOMERO K 706.2 Sebaceous Cyst 11/02/2010 MAY DO, BALDOMERO K 705.83 Hidradenitis 11/02/2010 MAY DO, BALDOMERO K 706.2 Sebaceous Cyst 11/02/2010 MAY DO, BALDOMERO K 705.83 Hidradenitis 11/02/2010 MAY DO, BALDOMERO K 706.2 Sebaceous Cyst 11/02/2010 MAY DO, BALDOMERO K 705.83 Hidradenitis 11/02/2010 MAY DO, BALDOMERO K 706.2 Sebaceous Cyst 11/02/2010 MAY DO, BALDOMERO K 705.83 Hidradenitis 11/02/2010 MAY DO, BALDOMERO K 706.2 Sebaceous Cyst 11/02/2010 MAY DO, BALDOMERO K 705.83 Hidradenitis 11/02/2010 MAY DO, BALDOMERO K 706.2 Sebaceous Cyst 11/02/2010 MAY DO, BALDOMERO K 705.83 Hidradenitis 11/02/2010 MAY DO, BALDOMERO K 706.2 Sebaceous Cyst 11/02/2010 MAY DO, BALDOMERO K 705.83 Hidradenitis 11/02/2010 MAY DO, BALDOMERO K 706.2 Sebaceous Cyst 11/02/2010 MAY DO, BALDOMERO K 705.83 Hidradenitis 11/02/2010 MAY DO, BALDOMERO K 706.2 Sebaceous Cyst 11/02/2010 MAY DO, BALDOMERO K 705.83 Hidradenitis 11/02/2010 MAY DO, BALDOMERO K 706.2 Sebaceous Cyst 12/15/2010 Ot 566 ANAL RECTAL ABSCESS 01/14/2011 Ot 599.0 URIN TRACT INFECTION NOS 01/14/2011 Ot 646.63 INFECTION -ANTEPARTUM 01/14/2011 Ot 646.83 PREG COMPL NEC-ANTEPART 01/14/2011 Ot 789.09 ABDOMINAL PAIN, OTHER SPECIFIED SITE 01/27/2011 599.0 Urinary Tract Infection 01/27/2011 646.60 Compl Of - Uti 01/27/2011 788.41 Urinary Frequency 01/27/2011 599.0 Urinary Tract Infection 01/27/2011 646.60 Compl Of - Uti 01/27/2011 788.41 Urinary Frequency 01/27/2011 599.0 Urinary Tract Infection 01/27/2011 646.60 Compl Of - Uti 01/27/2011 788.41 Urinary Frequency 01/27/2011 599.0 Urinary Tract Infection 01/27/2011 646.60 Compl Of - Uti 01/27/2011 788.41 Urinary Frequency 01/27/2011 ESTEPHANIA MORALES APRN 599.0 Urinary Tract Infection 01/27/2011 ESTEPHANIA MORALES APRN 646.60 Compl Of - Uti 01/27/2011 ANDREW SEXUAL ASSAULT COUNSELOR, ESTEPHANIA S 788.41 Urinary Frequency 01/27/2011 MAY DO, BALDOMERO K 599.0 Urinary Tract Infection 01/27/2011 MAY DO, BALDOMERO K 646.60 Compl Of - Uti 01/27/2011 MAY DO, BALDOMERO K 788.41 Urinary Frequency 01/27/2011 MAY DO, BALDOMERO K 599.0 Urinary Tract Infection 01/27/2011 MAY DO, BALDOMERO K 646.60 Compl Of - Uti 01/27/2011 MAY DO, BALDOMERO K 788.41 Urinary Frequency 01/27/2011 LORETTA SEXUAL ASSAULT COUNSELOR, ALBA A 599.0 Urinary Tract Infection 01/27/2011 LORETTA SEXUAL ASSAULT COUNSELOR, ALBA A 646.60 Compl Of - Uti 01/27/2011 LORETTA SEXUAL ASSAULT COUNSELOR, ALBA A 788.41 Urinary Frequency 01/27/2011 MAY DO, BALDOMERO K 599.0 Urinary Tract Infection 01/27/2011 MAY DO, BALDOMERO K 646.60 Compl Of - Uti 01/27/2011 MAY DO, BALDOMERO K 788.41 Urinary Frequency 01/27/2011 MAY DO, BALDOMERO K 599.0 Urinary Tract Infection 01/27/2011 MAY DO, BALDOMERO K 646.60 Compl Of - Uti 01/27/2011 MAY DO, BALDOMERO K 788.41 Urinary Frequency 01/27/2011 NAVA DDS, TADEO 599.0 Urinary Tract Infection 01/27/2011 NAVA DDS, TADEO 646.60 Compl Of - Uti 01/27/2011 NAVA DDS, TADEO 788.41 Urinary Frequency 01/27/2011 MAY DO, BALDOMERO K 599.0 Urinary Tract Infection 01/27/2011 MAY DO, BALDOMERO K 646.60 Compl Of - Uti 01/27/2011 MAY DO, BALDOMERO K 788.41 Urinary Frequency 01/27/2011 MAY DO, BALDOMERO K 599.0 Urinary Tract Infection 01/27/2011 MAY DO, BALDOMERO K 646.60 Compl Of - Uti 01/27/2011 MAY DO, BALDOMERO K 788.41 Urinary Frequency 01/27/2011 MAY DO, BALDOMERO K 599.0 Urinary Tract Infection 01/27/2011 MAY DO, BALDOMERO K 646.60 Compl Of - Uti 01/27/2011 MAY DO, BALDOMERO K 788.41 Urinary Frequency 01/27/2011 MAY DO, BALDOMERO K 599.0 Urinary Tract Infection 01/27/2011 MAY DO, BALDOMERO K 646.60 Compl Of - Uti 01/27/2011 MAY DO, BALDOMERO K 788.41 Urinary Frequency 01/27/2011 MAY DO, BALDOMERO K 599.0 Urinary Tract Infection 01/27/2011 MAY DO, BALDOMERO K 646.60 Compl Of - Uti 01/27/2011 MAY DO, BALDOMERO K 788.41 Urinary Frequency 01/27/2011 MAY DO, BALDOMERO K 599.0 Urinary Tract Infection 01/27/2011 MAY DO, BALDOMERO K 646.60 Compl Of - Uti 01/27/2011 MAY DO, BALDOMERO K 788.41 Urinary Frequency 01/27/2011 MAY DO, BALDOMERO K 599.0 Urinary Tract Infection 01/27/2011 MAY DO, BALDOMERO K 646.60 Compl Of - Uti 01/27/2011 MAY DO, BALDOMERO K 788.41 Urinary Frequency 01/27/2011 MAY DO, BALDOMERO K 599.0 Urinary Tract Infection 01/27/2011 MAY DO, BALDOMERO K 646.60 Compl Of - Uti 01/27/2011 MAY DO, BALDOMERO K 788.41 Urinary Frequency 01/27/2011 MAY DO, BALDOMERO K 599.0 Urinary Tract Infection 01/27/2011 MAY DO, BALDOMERO K 646.60 Compl Of - Uti 01/27/2011 MAY DO, BALDOMERO K 788.41 Urinary Frequency 01/27/2011 MAY DO, BALDOMERO K 599.0 Urinary Tract Infection 01/27/2011 MAY DO, BALDOMERO K 646.60 Compl Of - Uti 01/27/2011 MAY DO, BALDOMERO K 788.41 Urinary Frequency 01/27/2011 MAY DO, BALDOMERO K 599.0 Urinary Tract Infection 01/27/2011 MAY DO, BALDOMERO K 646.60 Compl Of - Uti 01/27/2011 MAY DO, BALDOMERO K 788.41 Urinary Frequency 02/10/2011 525.9 Unspecified Disorder Of The Teeth And Supporting Structures 02/10/2011 V22.1 , Normal Other 02/10/2011 525.9 Unspecified Disorder Of The Teeth And Supporting Structures 02/10/2011 V22.1 , Normal Other 02/10/2011 525.9 Unspecified Disorder Of The Teeth And Supporting Structures 02/10/2011 V22.1 , Normal Other 02/10/2011 525.9 Unspecified Disorder Of The Teeth And Supporting Structures 02/10/2011 V22.1 , Normal Other 02/10/2011 ANDREW SEXUAL ASSAULT COUNSELOR ESTPEHANIA S 525.9 Unspecified Disorder Of The Teeth And Supporting Structures 02/10/2011 ANDREW SEXUAL ASSAULT COUNSELOR, ESTEPHANIA S V22.1 , Normal Other 02/10/2011 MAY DO, BALDOMERO K 525.9 Unspecified Disorder Of The Teeth And Supporting Structures 02/10/2011 MAY DO, BALDOMERO K V22.1 , Normal Other 02/10/2011 MAY DO, BALDOMERO K 525.9 Unspecified Disorder Of The Teeth And Supporting Structures 02/10/2011 MAY DO, BALDOMERO K V22.1 , Normal Other 02/10/2011 LORETTA SAMPSON ALBA A 525.9 Unspecified Disorder Of The Teeth And Supporting Structures 02/10/2011 LORETTA SEXUAL ASSAULT COUNSELOR ALBA A V22.1 , Normal Other 02/10/2011 MAY DO, BALDOMERO K 525.9 Unspecified Disorder Of The Teeth And Supporting Structures 02/10/2011 MAY DO, BALDOMERO K V22.1 , Normal Other 02/10/2011 MAY DO, BALDOMERO K 525.9 Unspecified Disorder Of The Teeth And Supporting Structures 02/10/2011 MAY DO, BALDOMERO K V22.1 , Normal Other 02/10/2011 TADEO NAVA DDS 525.9 Unspecified Disorder Of The Teeth And Supporting Structures 02/10/2011 TADEO NAVA DDS V22.1 , Normal Other 02/10/2011 MAY DO, BALDOMERO K 525.9 Unspecified Disorder Of The Teeth And Supporting Structures 02/10/2011 MAY DO, BALDOMERO K V22.1 , Normal Other 02/10/2011 MAY DO, BALDOMERO K 525.9 Unspecified Disorder Of The Teeth And Supporting Structures 02/10/2011 MAY DO, BALDOMERO K V22.1 , Normal Other 02/10/2011 MAY DO, BALDOMERO K 525.9 Unspecified Disorder Of The Teeth And Supporting Structures 02/10/2011 MAY DO, BALDOMERO K V22.1 , Normal Other 02/10/2011 MAY DO, BALDOMERO K 525.9 Unspecified Disorder Of The Teeth And Supporting Structures 02/10/2011 MAY DO, BALDOMERO K V22.1 , Normal Other 02/10/2011 MAY DO, BALDOMERO K 525.9 Unspecified Disorder Of The Teeth And Supporting Structures 02/10/2011 MAY DO, BALDOMERO K V22.1 , Normal Other 02/10/2011 MAY DO, BALDOMERO K 525.9 Unspecified Disorder Of The Teeth And Supporting Structures 02/10/2011 MAY DO, BALDOMERO K V22.1 , Normal Other 02/10/2011 MAY DO, BALDOMERO K 525.9 Unspecified Disorder Of The Teeth And Supporting Structures 02/10/2011 MAY DO, BALDOMERO K V22.1 , Normal Other 02/10/2011 MAY DO, BALDOMERO K 525.9 Unspecified Disorder Of The Teeth And Supporting Structures 02/10/2011 MAY DO, BALDOMERO K V22.1 , Normal Other 02/10/2011 MAY DO, BALDOMERO K 525.9 Unspecified Disorder Of The Teeth And Supporting Structures 02/10/2011 MAY DO, BALDOMERO K V22.1 , Normal Other 02/10/2011 MAY DO, BALDOMERO K 525.9 Unspecified Disorder Of The Teeth And Supporting Structures 02/10/2011 MAY DO, BALDOMERO K V22.1 , Normal Other 02/10/2011 MAY DO, BALDOMERO K 525.9 Unspecified Disorder Of The Teeth And Supporting Structures 02/10/2011 MAY DO, BALDOMEOR K V22.1 , Normal Other 03/10/2011 656.13 RH NEGATIVE 03/10/2011 V72.31 Hammer Mill Operator Exam, Routine 03/10/2011 V74.5 Std Screen 03/10/2011 656.13 RH NEGATIVE 03/10/2011 V72.31 Hammer Mill Operator Exam, Routine 03/10/2011 V74.5 Std Screen 03/10/2011 656.13 RH NEGATIVE 03/10/2011 V72.31 Hammer Mill Operator Exam, Routine 03/10/2011 V74.5 Std Screen 03/10/2011 656.13 RH NEGATIVE 03/10/2011 V72.31 Hammer Mill Operator Exam, Routine 03/10/2011 V74.5 Std Screen 03/10/2011 ANDREW SEXUAL ASSAULT COUNSELOR, ESTEPHANIA S 656.13 RH NEGATIVE 03/10/2011 ANDREW SEXUAL ASSAULT COUNSELOR, ESTEPHANIA S V72.31 Hammer Mill Operator Exam, Routine 03/10/2011 ANDREW SEXUAL ASSAULT COUNSELOR, ESTEPHANIA S V74.5 Std Screen 03/10/2011 MAY DO, BALDOMERO K 656.13 RH NEGATIVE 03/10/2011 MAY DO, BALDOMERO K V72.31 Hammer Mill Operator Exam, Routine 03/10/2011 MAY DO, BALDOMERO K V74.5 Std Screen 03/10/2011 MAY DO, BALDOMERO K 656.13 RH NEGATIVE 03/10/2011 MAY DO, BALDOMERO K V72.31 Hammer Mill Operator Exam, Routine 03/10/2011 MAY DO, BALDOMERO K V74.5 Std Screen 03/10/2011 LORETTA APRN, ALBA A 656.13 RH NEGATIVE 03/10/2011 LORETTA APRN, ALBA A V72.31 Hammer Mill Operator Exam, Routine 03/10/2011 LORETTASYLWIA SAMPSON ALBA A V74.5 Std Screen 03/10/2011 MAY DO, BALDOMERO K 656.13 RH NEGATIVE 03/10/2011 MAY DO, BALDOMERO K V72.31 Hammer Mill Operator Exam, Routine 03/10/2011 MAY DO, BALDOMERO K V74.5 Std Screen 03/10/2011 MAY DO, BALDOMERO K 656.13 RH NEGATIVE 03/10/2011 MAY DO, BALDOMERO K V72.31 Hammer Mill Operator Exam, Routine 03/10/2011 MAY DO, BALDOMERO K V74.5 Std Screen 03/10/2011 NAVA DDS, TADEO 656.13 RH NEGATIVE 03/10/2011 NAVA DDS, TADEO V72.31 Hammer Mill Operator Exam, Routine 03/10/2011 NAVA DDS, TADEO V74.5 Std Screen 03/10/2011 MAY DO, BALDOMERO K 656.13 RH NEGATIVE 03/10/2011 MAY DO, BALDOMERO K V72.31 Hammer Mill Operator Exam, Routine 03/10/2011 MAY DO, BALDOMERO K V74.5 Std Screen 03/10/2011 MAY DO, BALDOMERO K 656.13 RH NEGATIVE 03/10/2011 MAY DO, BALDOMERO K V72.31 Hammer Mill Operator Exam, Routine 03/10/2011 AMY DO, BALDOMERO K V74.5 Std Screen 03/10/2011 MAY DO, BALDOMERO K 656.13 RH NEGATIVE 03/10/2011 MAY DO, BALDOMERO K V72.31 Hammer Mill Operator Exam, Routine 03/10/2011 MAY DO, BALDOMERO K V74.5 Std Screen 03/10/2011 MAY DO, BALDOMERO K 656.13 RH NEGATIVE 03/10/2011 MAY DO, BALDOMERO K V72.31 Hammer Mill Operator Exam, Routine 03/10/2011 MAY DO, BALDOMERO K V74.5 Std Screen 03/10/2011 MAY DO, BALDOMERO K 656.13 RH NEGATIVE 03/10/2011 MAY DO, BALDOMERO K V72.31 Hammer Mill Operator Exam, Routine 03/10/2011 MAY DO, BALDOMERO K V74.5 Std Screen 03/10/2011 MAY DO, BALDOMERO K 656.13 RH NEGATIVE 03/10/2011 MAY DO, BALDOMERO K V72.31 Hammer Mill Operator Exam, Routine 03/10/2011 MAY DO, BALDOMERO K V74.5 Std Screen 03/10/2011 MAY DO, BALDOMERO K 656.13 RH NEGATIVE 03/10/2011 MAY DO, BALDOMERO K V72.31 Hammer Mill Operator Exam, Routine 03/10/2011 MAY DO, BALDOMERO K V74.5 Std Screen 03/10/2011 MAY DO, BALDOMERO K 656.13 RH NEGATIVE 03/10/2011 MAY DO, BALDOMERO K V72.31 Hammer Mill Operator Exam, Routine 03/10/2011 MAY DO, BALDOMERO K V74.5 Std Screen 03/10/2011 MAY DO, BALDOMERO K 656.13 RH NEGATIVE 03/10/2011 MAY DO, BALDOMERO K V72.31 Hammer Mill Operator Exam, Routine 03/10/2011 MAY DO, BALDOMERO K V74.5 Std Screen 03/10/2011 MAY DO, BALDOMERO K 656.13 RH NEGATIVE 03/10/2011 MAY DO, BALDOMERO K V72.31 Hammer Mill Operator Exam, Routine 03/10/2011 MAY DO, BALDOMERO K V74.5 Std Screen 03/10/2011 MAY DO, BALDOMERO K 656.13 RH NEGATIVE 03/10/2011 MAY DO, BALDOMERO K V72.31 Hammer Mill Operator Exam, Routine 03/10/2011 MAY DO, BALDOMERO K V74.5 Std Screen 05/25/2011 V04.81 Flu Dx (3 Yrs And Above, Im) 05/25/2011 V04.81 Flu Dx (3 Yrs And Above, Im) 05/25/2011 V04.81 Flu Dx (3 Yrs And Above, Im) 05/25/2011 V04.81 Flu Dx (3 Yrs And Above, Im) 05/25/2011 ANDREW MEANSN, ESTEPHANIA S V04.81 Flu Dx (3 Yrs And Above, Im) 05/25/2011 MAY DO, BALDOMERO K V04.81 Flu Dx (3 Yrs And Above, Im) 05/25/2011 MAY DO, BALDOMERO K V04.81 Flu Dx (3 Yrs And Above, Im) 05/25/2011 LORETTA MEANSN, ALBA A V04.81 Flu Dx (3 Yrs And Above, Im) 05/25/2011 MAY DO, BALDOMERO K V04.81 Flu Dx (3 Yrs And Above, Im) 05/25/2011 MAY DO, BALDOMERO K V04.81 Flu Dx (3 Yrs And Above, Im) 05/25/2011 BRANDY VELASQUEZTAMARAW V04.81 Flu Dx (3 Yrs And Above, Im) 05/25/2011 MAY DO, BALDOMERO K V04.81 Flu Dx (3 Yrs And Above, Im) 05/25/2011 MAY DO, BALDOMERO K V04.81 Flu Dx (3 Yrs And Above, Im) 05/25/2011 MAY DO, BALDOMERO K V04.81 Flu Dx (3 Yrs And Above, Im) 05/25/2011 MAY DO, BALDOMERO K V04.81 Flu Dx (3 Yrs And Above, Im) 05/25/2011 MAY DO, BALDOMERO K V04.81 Flu Dx (3 Yrs And Above, Im) 05/25/2011 MAY DO, BALDOMERO K V04.81 Flu Dx (3 Yrs And Above, Im) 05/25/2011 MAY DO, BALDOMERO K V04.81 Flu Dx (3 Yrs And Above, Im) 05/25/2011 MAY DO, BALDOMERO K V04.81 Flu Dx (3 Yrs And Above, Im) 05/25/2011 MAY DO, BALDOMERO K V04.81 Flu Dx (3 Yrs And Above, Im) 05/25/2011 MAY DO, BALDOMERO K V04.81 Flu Dx (3 Yrs And Above, Im) 05/25/2011 MAY DO, BALDOMERO K V04.81 Flu Dx (3 Yrs And Above, Im) 05/31/2011 787.03 Vomiting Alone 05/31/2011 787.03 Vomiting Alone 05/31/2011 787.03 Vomiting Alone 05/31/2011 787.03 Vomiting Alone 05/31/2011 ESTEPHANIA MORALES APRN 787.03 Vomiting Alone 05/31/2011 MAY DO, BALDOMERO K 787.03 Vomiting Alone 05/31/2011 MAY DO, BALDOMERO K 787.03 Vomiting Alone 05/31/2011 ALBA BURGOS APRN 787.03 Vomiting Alone 05/31/2011 MAY DO, BALDOMERO K 787.03 Vomiting Alone 05/31/2011 MAY DO, BALDOMERO K 787.03 Vomiting Alone 05/31/2011 TADEO NAVA DDS 787.03 Vomiting Alone 05/31/2011 MAY DO, BALDOMERO K 787.03 Vomiting Alone 05/31/2011 MAY DO, BALDOMERO K 787.03 Vomiting Alone 05/31/2011 MAY DO, BALDOMERO K 787.03 Vomiting Alone 05/31/2011 MAY DO, BALDOMERO K 787.03 Vomiting Alone 05/31/2011 MAY DO, BALDOMERO K 787.03 Vomiting Alone 05/31/2011 MAY DO, BALDOMERO K 787.03 Vomiting Alone 05/31/2011 MAY DO, BALDOMERO K 787.03 Vomiting Alone 05/31/2011 MAY DO, BALDOMERO K 787.03 Vomiting Alone 05/31/2011 MAY DO, BALDOMERO K 787.03 Vomiting Alone 05/31/2011 MAY DO, BALDOMERO K 787.03 Vomiting Alone 05/31/2011 MAY DO, BALDOMERO K 787.03 Vomiting Alone 06/16/2011 789.05 Abdominal Pain Periumbilic 06/16/2011 789.05 Abdominal Pain Periumbilic 06/16/2011 789.05 Abdominal Pain Periumbilic 06/16/2011 789.05 Abdominal Pain Periumbilic 06/16/2011 ESTEPHANIA MORALES APRN 789.05 Abdominal Pain Periumbilic 06/16/2011 MAY DO, BALDOMERO K 789.05 Abdominal Pain Periumbilic 06/16/2011 MAY DO, BALDOMERO K 789.05 Abdominal Pain Periumbilic 06/16/2011 ALBA BURGOS APRN A 789.05 Abdominal Pain Periumbilic 06/16/2011 MAY DO, BALDOMERO K 789.05 Abdominal Pain Periumbilic 06/16/2011 MAY DO, BALDOMERO K 789.05 Abdominal Pain Periumbilic 06/16/2011 TADEO NAVA DDS 789.05 Abdominal Pain Periumbilic 06/16/2011 MAY DO, BALDOMERO K 789.05 Abdominal Pain Periumbilic 06/16/2011 MAY DO, BALDOMERO K 789.05 Abdominal Pain Periumbilic 06/16/2011 MAY DO, BALDOMERO K 789.05 Abdominal Pain Periumbilic 06/16/2011 MAY DO, BALDOMERO K 789.05 Abdominal Pain Periumbilic 06/16/2011 MAY DO, BALDOMERO K 789.05 Abdominal Pain Periumbilic 06/16/2011 MAY DO, BALDOMERO K 789.05 Abdominal Pain Periumbilic 06/16/2011 MAY DO, BALDOMERO K 789.05 Abdominal Pain Periumbilic 06/16/2011 MAY DO, BALDOMERO K 789.05 Abdominal Pain Periumbilic 06/16/2011 MAY DO, BALDOMERO K 789.05 Abdominal Pain Periumbilic 06/16/2011 MAY DO, BALDOMERO K 789.05 Abdominal Pain Periumbilic 06/16/2011 MAY DO, BALDOMERO K 789.05 Abdominal Pain Periumbilic 08/05/2011 V02.51 Gbs - Carrier Or Suspected Carrier 08/05/2011 V02.51 Gbs - Carrier Or Suspected Carrier 08/05/2011 V02.51 Gbs - Carrier Or Suspected Carrier 08/05/2011 V02.51 Gbs - Carrier Or Suspected Carrier 08/05/2011 ESTEPHANIA MORALES APRN V02.51 Gbs - Carrier Or Suspected Carrier 08/05/2011 MAY DO, BALDOMERO K V02.51 Gbs - Carrier Or Suspected Carrier 08/05/2011 MAY DO, BALDOMERO K V02.51 Gbs - Carrier Or Suspected Carrier 08/05/2011 ALBA BURGOS APRN V02.51 Gbs - Carrier Or Suspected Carrier 08/05/2011 MAY DO, BALDOMERO K V02.51 Gbs - Carrier Or Suspected Carrier 08/05/2011 MAY DO, BALDOMERO K V02.51 Gbs - Carrier Or Suspected Carrier 08/05/2011 TAMARA NAVA DDSW V02.51 Gbs - Carrier Or Suspected Carrier 08/05/2011 MAY DO, BALDOMERO K V02.51 Gbs - Carrier Or Suspected Carrier 08/05/2011 MAY DO, BALDOMERO K V02.51 Gbs - Carrier Or Suspected Carrier 08/05/2011 MAY DO, BALDOMERO K V02.51 Gbs - Carrier Or Suspected Carrier 08/05/2011 MAY DO, BALDOMERO K V02.51 Gbs - Carrier Or Suspected Carrier 08/05/2011 MAY DO, BALDOMERO K V02.51 Gbs - Carrier Or Suspected Carrier 08/05/2011 MAY DO, BALDOMERO K V02.51 Gbs - Carrier Or Suspected Carrier 08/05/2011 MAY DO, BALDOMERO K V02.51 Gbs - Carrier Or Suspected Carrier 08/05/2011 MAY DO, BALDOMERO K V02.51 Gbs - Carrier Or Suspected Carrier 08/05/2011 MAY DO, BALDOMERO K V02.51 Gbs - Carrier Or Suspected Carrier 08/05/2011 MAY DO, BALDOMERO K V02.51 Gbs - Carrier Or Suspected Carrier 08/05/2011 MAY DO, BALDOMERO K V02.51 Gbs - Carrier Or Suspected Carrier 08/21/2011 Ot 216.5 BENIGN MAILE SKIN TRUNK 08/21/2011 Ot 285.9 ANEMIA NOS 08/21/2011 Ot 648.21 ANEMIA- DELIVERED 08/21/2011 Ot 648.91 OTH CURR COND-DELIVERED 08/21/2011 Ot 649.01 TOBACCO USE DISORDER COMP PREG/CHILDBIRT 08/21/2011 Ot V02.51 GROUP B STREPT CARRIER/SUSPECTED CARRIER 08/21/2011 Ot V07.2 PROPHYLACT IMMUNOTHERAPY 08/21/2011 Ot V27.0 DELIVER- SINGLE LIVEBORN 09/14/2011 V25.49 Contraception Surveillance (repeat Rx) 09/14/2011 V25.49 Contraception Surveillance (repeat Rx) 09/14/2011 V25.49 Contraception Surveillance (repeat Rx) 09/14/2011 V25.49 Contraception Surveillance (repeat Rx) 09/14/2011 ESTEPHANIA MORALES APRN V25.49 Contraception Surveillance (repeat Rx) 09/14/2011 BALDOMERO MAY DO V25.49 Contraception Surveillance (repeat Rx) 09/14/2011 BALDOMERO MAY DO V25.49 Contraception Surveillance (repeat Rx) 09/14/2011 ALBA BURGOS APRN V25.49 Contraception Surveillance (repeat Rx) 09/14/2011 MAY DO BALDOMERO K V25.49 Contraception Surveillance (repeat Rx) 09/14/2011 MAY DO BALDOMERO K V25.49 Contraception Surveillance (repeat Rx) 09/14/2011 TADEO NAVA DDS V25.49 Contraception Surveillance (repeat Rx) 09/14/2011 MAY DO BALDOMERO K V25.49 Contraception Surveillance (repeat Rx) 09/14/2011 MAY DO BALDOMERO K V25.49 Contraception Surveillance (repeat Rx) 09/14/2011 MAY DO, BALDOMERO K V25.49 Contraception Surveillance (repeat Rx) 09/14/2011 MAY DO BALDOMERO K V25.49 Contraception Surveillance (repeat Rx) 09/14/2011 MAY DO BALDOMERO K V25.49 Contraception Surveillance (repeat Rx) 09/14/2011 MAY DO BALDOMERO K V25.49 Contraception Surveillance (repeat Rx) 09/14/2011 MAY DO BALDOMERO K V25.49 Contraception Surveillance (repeat Rx) 09/14/2011 MAY DO BALDOMERO K V25.49 Contraception Surveillance (repeat Rx) 09/14/2011 MAY DO BALDOMERO K V25.49 Contraception Surveillance (repeat Rx) 09/14/2011 MAY DO BALDOMERO K V25.49 Contraception Surveillance (repeat Rx) 09/14/2011 MAY DO BALDOMERO K V25.49 Contraception Surveillance (repeat Rx) 10/05/2011 597.89 URETHRA ADENITIS OF [place] 10/05/2011 V24.2 visit for: exam 10/05/2011 597.89 URETHRA ADENITIS OF [place] 10/05/2011 V24.2 visit for: exam 10/05/2011 597.89 URETHRA ADENITIS OF [place] 10/05/2011 V24.2 Visit For: Exam 10/05/2011 597.89 URETHRA ADENITIS OF [place] 10/05/2011 V24.2 Visit For: Exam 10/05/2011 ESTEPHANIA MORALES APRN 597.89 URETHRA ADENITIS OF [place] 10/05/2011 ESTEPHANIA MORALES APRN V24.2 Visit For: Exam 10/05/2011 MAY DO, BALDOMERO K 597.89 URETHRA ADENITIS OF [place] 10/05/2011 MAY DO, BALDOMERO K V24.2 Visit For: Exam 10/05/2011 MAY DO, BALDOMERO K 597.89 URETHRA ADENITIS OF [place] 10/05/2011 MAY DO, BALDOMERO K V24.2 Visit For: Exam 10/05/2011 LORETTA SEXUAL ASSAULT COUNSELOR, ALBA A 597.89 URETHRA ADENITIS OF [place] 10/05/2011 LORETTA SEXUAL ASSAULT COUNSELOR, ALBA A V24.2 Visit For: Exam 10/05/2011 MAY DO, BALDOMERO K 597.89 URETHRA ADENITIS OF [place] 10/05/2011 MAY DO, BALDOMERO K V24.2 Visit For: Exam 10/05/2011 MAY DO, BALDOMERO K 597.89 URETHRA ADENITIS OF [place] 10/05/2011 MAY DO, BALDOMERO K V24.2 Visit For: Exam 10/05/2011 TADEO NAVA DDS 597.89 URETHRA ADENITIS OF [place] 10/05/2011 NAVA DDSTADEO V24.2 Visit For: Exam 10/05/2011 MAY DO, BALDOMERO K 597.89 URETHRA ADENITIS OF [place] 10/05/2011 MAY DO, BALDOMERO K V24.2 Visit For: Exam 10/05/2011 MAY DO BALDOMERO K 597.89 URETHRA ADENITIS OF [place] 10/05/2011 AMY DO, BALDOMERO K V24.2 Visit For: Exam 10/05/2011 MAY DO, BALDOMERO K 597.89 URETHRA ADENITIS OF [place] 10/05/2011 MAY DO, BALDOMERO K V24.2 Visit For: Exam 10/05/2011 MAY DO, BALDOMERO K 597.89 URETHRA ADENITIS OF [place] 10/05/2011 MAY DO, BALDOMERO K V24.2 Visit For: Exam 10/05/2011 MAY DO, BALDOMERO K 597.89 URETHRA ADENITIS OF [place] 10/05/2011 MAY DO, BALDOMERO K V24.2 Visit For: Exam 10/05/2011 MAY DO, BALDOMERO K 597.89 URETHRA ADENITIS OF [place] 10/05/2011 MAY DO, BALDOMERO K V24.2 Visit For: Exam 10/05/2011 MAY DO, BALDOMERO K 597.89 URETHRA ADENITIS OF [place] 10/05/2011 MAY DO, BALDOMERO K V24.2 Visit For: Exam 10/05/2011 MAY DO, BALDOMERO K 597.89 URETHRA ADENITIS OF [place] 10/05/2011 MAY DO, BALDOMERO K V24.2 Visit For: Exam 10/05/2011 MAY DO, BALDOMERO K 597.89 URETHRA ADENITIS OF [place] 10/05/2011 MAY DO, BALDOMERO K V24.2 Visit For: Exam 10/05/2011 MAY DO, BALDOMERO K 597.89 URETHRA ADENITIS OF [place] 10/05/2011 MAY DO, BALDOMERO K V24.2 Visit For: Exam 10/05/2011 MAY DO, BALDOMERO K 597.89 URETHRA ADENITIS OF [place] 10/05/2011 MAY DO, BALDOMERO K V24.2 Visit For: Exam 09/14/2012 525.9 TOOTH PAIN 09/14/2012 525.9 TOOTH PAIN 09/14/2012 525.9 Tooth Pain 09/14/2012 525.9 Tooth Pain 09/14/2012 ESTEPHANIA MORALES APRN 525.9 Tooth Pain 09/14/2012 MAY DO, BALDOMERO K 525.9 Tooth Pain 09/14/2012 MAY DO, BALDOMERO K 525.9 Tooth Pain 09/14/2012 ALBA BURGOS APRN 525.9 Tooth Pain 09/14/2012 MAY DO, BALDOMERO K 525.9 Tooth Pain 09/14/2012 MAY DO, BALDOMERO K 525.9 Tooth Pain 09/14/2012 TADEO NAVA DDS 525.9 Tooth Pain 09/14/2012 MAY DO, BALDOMERO K 525.9 Tooth Pain 09/14/2012 MAY DO, BALDOMERO K 525.9 Tooth Pain 09/14/2012 MAY DO, BALDOMERO K 525.9 Tooth Pain 09/14/2012 MAY DO, BALDOMERO K 525.9 Tooth Pain 09/14/2012 MAY DO, BALDOMERO K 525.9 Tooth Pain 09/14/2012 MAY DO, BALDOMERO K 525.9 Tooth Pain 09/14/2012 MAY DO, BALDOMERO K 525.9 Tooth Pain 09/14/2012 MAY DO, BALDOMERO K 525.9 Tooth Pain 09/14/2012 MAY DO, BALDOMERO K 525.9 Tooth Pain 09/14/2012 MAY DO, BALDOMERO K 525.9 Tooth Pain 09/14/2012 MAY DO, BALDOMERO K 525.9 Tooth Pain 11/27/2012 784.0 headache 11/27/2012 784.0 headache 11/27/2012 784.0 headache 11/27/2012 ESTEPHANIA MORALES APRN 784.0 headache 11/27/2012 MAY DO, BALDOMERO K 784.0 headache 11/27/2012 MAY DO, BALDOMERO K 784.0 headache 11/27/2012 ALBA BURGOS APRN 784.0 HEADACHE 11/27/2012 MAY DO, BALDOMERO K 784.0 HEADACHE 11/27/2012 MAY DO, BALDOMERO K 784.0 HEADACHE 11/27/2012 TADEO NAVA DDS 784.0 HEADACHE 11/27/2012 MAY DO, BALDOMERO K 784.0 HEADACHE 11/27/2012 MAY DO, BALDOMERO K 784.0 HEADACHE 11/27/2012 MAY DO, BALDOMERO K 784.0 HEADACHE 11/27/2012 MAY DO, BALDOMERO K 784.0 HEADACHE 11/27/2012 MAY DO, BALDOMERO K 784.0 HEADACHE 11/27/2012 MAY DO, BALDOMERO K 784.0 HEADACHE 11/27/2012 MAY DO, BALDOMERO K 784.0 HEADACHE 11/27/2012 MAY DO, BALDOMERO K 784.0 HEADACHE 11/27/2012 MAY DO, BALDOMERO K 784.0 HEADACHE 11/27/2012 MAY DO, BALDOMERO K 784.0 HEADACHE 11/27/2012 MAY DO, BALDOMERO K 784.0 HEADACHE 11/29/2012 350.1 TRIGEMINAL NEURALGIA 11/29/2012 350.1 TRIGEMINAL NEURALGIA 11/29/2012 ESTEPHANIA MORALES APRN 350.1 TRIGEMINAL NEURALGIA 11/29/2012 MAY DO, BALDOMERO K 350.1 TRIGEMINAL NEURALGIA 11/29/2012 MAY DO, BALDOMERO K 350.1 TRIGEMINAL NEURALGIA 11/29/2012 LORETTA SEXUAL ASSAULT COUNSELOR, ALBA A 350.1 TRIGEMINAL NEURALGIA 11/29/2012 MAY DO, BALDOMERO K 350.1 TRIGEMINAL NEURALGIA 11/29/2012 MAY DO, BALDOMERO K 350.1 TRIGEMINAL NEURALGIA 11/29/2012 TADEO NAVA DDS 350.1 TRIGEMINAL NEURALGIA 11/29/2012 MAY DO, BALDOMERO K 350.1 TRIGEMINAL NEURALGIA 11/29/2012 MAY DO, BALDOMERO K 350.1 TRIGEMINAL NEURALGIA 11/29/2012 MAY DO, BALDOMERO K 350.1 TRIGEMINAL NEURALGIA 11/29/2012 MAY DO, BALDOMERO K 350.1 TRIGEMINAL NEURALGIA 11/29/2012 MAY DO, BALDOMERO K 350.1 TRIGEMINAL NEURALGIA 11/29/2012 MAY DO, BALDOMERO K 350.1 TRIGEMINAL NEURALGIA 11/29/2012 MAY DO, BALDOMERO K 350.1 TRIGEMINAL NEURALGIA 11/29/2012 MAY DO, BALDOMERO K 350.1 TRIGEMINAL NEURALGIA 11/29/2012 MAY DO, BALDOMERO K 350.1 TRIGEMINAL NEURALGIA 11/29/2012 MAY DO, BALDOMERO K 350.1 TRIGEMINAL NEURALGIA 11/29/2012 MAY DO, BALDOMERO K 350.1 TRIGEMINAL NEURALGIA 05/15/2013 461.9 SINUSITIS ACUTE 05/15/2013 780.79 OTHER MALAISE AND FATIGUE 05/15/2013 786.2 COUGH 05/15/2013 ANDREW SEXUAL ASSAULT COUNSELOR, ESTEPHANIA S 461.9 SINUSITIS ACUTE 05/15/2013 ANDREW SEXUAL ASSAULT COUNSELOR, ESTEPHANIA S 780.79 OTHER MALAISE AND FATIGUE 05/15/2013 ANDREW SEXUAL ASSAULT COUNSELOR, ESTEPHANIA S 786.2 COUGH 05/15/2013 MAY DO, BALDOMERO K 461.9 SINUSITIS ACUTE 05/15/2013 MAY DO, BALDOMERO K 780.79 OTHER MALAISE AND FATIGUE 05/15/2013 MAY DO, BALDOMERO K 786.2 COUGH 05/15/2013 MAY DO, BALDOMERO K 461.9 SINUSITIS ACUTE 05/15/2013 MAY DO, BALDOMERO K 780.79 OTHER MALAISE AND FATIGUE 05/15/2013 MAY DO, BALDOMERO K 786.2 COUGH 05/15/2013 LORETTA SEXUAL ASSAULT COUNSELOR, ALBA A 461.9 SINUSITIS ACUTE 05/15/2013 LORETTA SEXUAL ASSAULT COUNSELOR, ALBA A 780.79 OTHER MALAISE AND FATIGUE 05/15/2013 LORETTA SAMPSON, ALBA A 786.2 COUGH 05/15/2013 MAY DO, BALDOMERO K 461.9 SINUSITIS ACUTE 05/15/2013 MAY DO, BALDOMERO K 780.79 OTHER MALAISE AND FATIGUE 05/15/2013 MAY DO, BALDOMERO K 786.2 COUGH 05/15/2013 MAY DO, BALDOMERO K 461.9 SINUSITIS ACUTE 05/15/2013 MAY DO, BALDOMERO K 780.79 OTHER MALAISE AND FATIGUE 05/15/2013 MAY DO, BALDOMERO K 786.2 COUGH 05/15/2013 NAVA DDS, TADEO 461.9 SINUSITIS ACUTE 05/15/2013 NAVA DDS, TADEO 780.79 OTHER MALAISE AND FATIGUE 05/15/2013 NAVA DDS, TADEO 786.2 COUGH 05/15/2013 MAY DO, BALDOMERO K 461.9 SINUSITIS ACUTE 05/15/2013 MAY DO, BALDOMERO K 780.79 OTHER MALAISE AND FATIGUE 05/15/2013 MAY DO, BALDOMERO K 786.2 COUGH 05/15/2013 MAY DO, BALDOMERO K 461.9 SINUSITIS ACUTE 05/15/2013 MAY DO, BALDOMERO K 780.79 OTHER MALAISE AND FATIGUE 05/15/2013 MAY DO, BALDOMERO K 786.2 COUGH 05/15/2013 MAY DO, BALDOMERO K 461.9 SINUSITIS ACUTE 05/15/2013 MAY DO, BALDOMERO K 780.79 OTHER MALAISE AND FATIGUE 05/15/2013 MAY DO, BALDOMERO K 786.2 COUGH 05/15/2013 MAY DO, BALDOMERO K 461.9 SINUSITIS ACUTE 05/15/2013 MAY DO, BALDMOERO K 780.79 OTHER MALAISE AND FATIGUE 05/15/2013 MAY DO, BALDOMERO K 786.2 COUGH 05/15/2013 MAY DO, BALDOMERO K 461.9 SINUSITIS ACUTE 05/15/2013 MAY DO, BALDOMERO K 780.79 OTHER MALAISE AND FATIGUE 05/15/2013 MAY DO, BALDOMERO K 786.2 COUGH 05/15/2013 MAY DO, BALDOMERO K 461.9 SINUSITIS ACUTE 05/15/2013 MAY DO, BALDOMERO K 780.79 OTHER MALAISE AND FATIGUE 05/15/2013 MAY DO, BALDOMERO K 786.2 COUGH 05/15/2013 MAY DO, BALDOMERO K 461.9 SINUSITIS ACUTE 05/15/2013 MAY DO, BALDOMERO K 780.79 OTHER MALAISE AND FATIGUE 05/15/2013 MAY DO, BALDOMERO K 786.2 COUGH 05/15/2013 MAY DO, BALDOMERO K 461.9 SINUSITIS ACUTE 05/15/2013 MAY DO, BALDOMERO K 780.79 OTHER MALAISE AND FATIGUE 05/15/2013 MAY DO, BALDOMERO K 786.2 COUGH 05/15/2013 MAY DO, BALDOMERO K 461.9 SINUSITIS ACUTE 05/15/2013 MAY DO, BALDOMERO K 780.79 OTHER MALAISE AND FATIGUE 05/15/2013 AMY DO, BALDOMERO K 786.2 COUGH 05/15/2013 MAY DO, BALDOMERO K 461.9 SINUSITIS ACUTE 05/15/2013 MAY DO, BALDOMERO K 780.79 OTHER MALAISE AND FATIGUE 05/15/2013 MAY DO, BALDOMERO K 786.2 COUGH 05/15/2013 MAY DO, BALDOMERO K 461.9 SINUSITIS ACUTE 05/15/2013 MAY DO, BALDOMERO K 780.79 OTHER MALAISE AND FATIGUE 05/15/2013 MAY DO, BALDOMERO K 786.2 COUGH 07/14/2013 ESTEPHANIA MORALES APRN 724.2 LUMBAGO/ LOW BACK PAIN 07/14/2013 MAY DO, BALDOMERO K 724.2 LUMBAGO/ LOW BACK PAIN 07/14/2013 MAY DO, BALDOMERO K 724.2 LUMBAGO/ LOW BACK PAIN 07/14/2013 ALBA BURGOS APRN 724.2 LUMBAGO/ LOW BACK PAIN 07/14/2013 MAY DO, BALDOMERO K 724.2 LUMBAGO/ LOW BACK PAIN 07/14/2013 MAY DO, BALDOMERO K 724.2 LUMBAGO/ LOW BACK PAIN 07/14/2013 TADEO NAVA DDS 724.2 LUMBAGO/ LOW BACK PAIN 07/14/2013 MAY DO, BALDOMERO K 724.2 LUMBAGO/ LOW BACK PAIN 07/14/2013 MAY DO, BALDOMERO K 724.2 LUMBAGO/ LOW BACK PAIN 07/14/2013 MAY DO, BALDOMERO K 724.2 LUMBAGO/ LOW BACK PAIN 07/14/2013 MAY DO, BALDOMERO K 724.2 LUMBAGO/ LOW BACK PAIN 07/14/2013 MAY DO, BALDOMERO K 724.2 LUMBAGO/ LOW BACK PAIN 07/14/2013 MAY DO, BALDOMERO K 724.2 LUMBAGO/ LOW BACK PAIN 07/14/2013 MAY DO, BALDOMERO K 724.2 LUMBAGO/ LOW BACK PAIN 07/14/2013 MAY DO, BALDOMERO K 724.2 LUMBAGO/ LOW BACK PAIN 07/14/2013 MAY DO, BALDOMERO K 724.2 LUMBAGO/ LOW BACK PAIN 07/14/2013 MAY DO, BALDOMERO K 724.2 LUMBAGO/ LOW BACK PAIN 07/14/2013 MAY DO, BALDOMERO K 724.2 LUMBAGO/ LOW BACK PAIN 11/19/2013 MAY DO, BALDOMERO K 787.02 NAUSEA ALONE 11/19/2013 MAY DO, BALDOMERO K V22.2 STATE INCIDENTAL 11/19/2013 MAY DO, BALDOMERO K 787.02 NAUSEA ALONE 11/19/2013 MAY DO, BALDOMERO K V22.2 STATE INCIDENTAL 11/19/2013 LORETTA APRN, ALBA A 787.02 NAUSEA ALONE 11/19/2013 LORETAT CAMILLA ALBA A V22.2 STATE INCIDENTAL 11/19/2013 MAY DO, BALDOMERO K 787.02 NAUSEA ALONE 11/19/2013 MAY DO, BALDOMERO K V22.2 STATE INCIDENTAL 11/19/2013 MAY DO, BALDOMERO K 787.02 NAUSEA ALONE 11/19/2013 MAY DO, BALDOMERO K V22.2 STATE INCIDENTAL 11/19/2013 NAVATADEO RHODES DDS 787.02 NAUSEA ALONE 11/19/2013 NAVA DDSTADEO V22.2 STATE INCIDENTAL 11/19/2013 MAY DO, BALDOMERO K 787.02 NAUSEA ALONE 11/19/2013 MAY DO, BALDOMERO K V22.2 STATE INCIDENTAL 11/19/2013 MAY DO, BALDOMERO K 787.02 NAUSEA ALONE 11/19/2013 MAY DO, BALDOMERO K V22.2 STATE INCIDENTAL 11/19/2013 MAY DO, BALDOMERO K 787.02 NAUSEA ALONE 11/19/2013 MAY DO, BALDOMERO K V22.2 STATE INCIDENTAL 11/19/2013 MAY DO, BALDOMERO K 787.02 NAUSEA ALONE 11/19/2013 MAY DO, BALDOMERO K V22.2 STATE INCIDENTAL 11/19/2013 MAY DO, BALDOMERO K 787.02 NAUSEA ALONE 11/19/2013 MAY DO, BALDOMERO K V22.2 STATE INCIDENTAL 11/19/2013 MAY DO, BALDOMERO K 787.02 NAUSEA ALONE 11/19/2013 MAY DO, BALDOMERO K V22.2 STATE INCIDENTAL 11/19/2013 MAY DO, BALDOMERO K 787.02 NAUSEA ALONE 11/19/2013 MAY DO, BALDOMERO K V22.2 STATE INCIDENTAL 11/19/2013 MAY DO, BALDOMERO K 787.02 NAUSEA ALONE 11/19/2013 MAY DO, BALDOMERO K V22.2 STATE INCIDENTAL 11/19/2013 MAY DO, BALDOMERO K 787.02 NAUSEA ALONE 11/19/2013 MAY DO, BALDOMERO K V22.2 STATE INCIDENTAL 11/19/2013 MAY DO, BALDOMERO K 787.02 NAUSEA ALONE 11/19/2013 MAY DO, BALDOMERO K V22.2 STATE INCIDENTAL 11/19/2013 MAY DO, BALDOMERO K 787.02 NAUSEA ALONE 11/19/2013 MAY DO, BALDOMERO K V22.2 STATE INCIDENTAL 11/22/2013 MAY DO, BALDOMERO K 649.00 COMPL OF - TOBACCO USE 11/22/2013 MAY DO, BALDOMERO K V22.0 , NORMAL FIRST 11/22/2013 ALBA BURGOS APRN A 649.00 COMPL OF - TOBACCO USE 11/22/2013 ALBA BURGOS APRN A V22.0 , NORMAL FIRST 11/22/2013 MAY DO, BALDOMERO K 649.00 COMPL OF - TOBACCO USE 11/22/2013 MAY DO, BALDOMERO K V22.0 , NORMAL FIRST 11/22/2013 MAY DO, BALDOMERO K 649.00 COMPL OF - TOBACCO USE 11/22/2013 MAY DO, BALDOMERO K V22.0 , NORMAL FIRST 11/22/2013 TADEO NAVA DDS 649.00 COMPL OF - TOBACCO USE 11/22/2013 TADEO NAVA DDS V22.0 , NORMAL FIRST 11/22/2013 MAY DO, BALDOMERO K 649.00 COMPL OF - TOBACCO USE 11/22/2013 MAY DO, BALDOMERO K V22.0 , NORMAL FIRST 11/22/2013 MAY DO, BALDOMERO K 649.00 COMPL OF - TOBACCO USE 11/22/2013 MAY DO, BALDOMERO K V22.0 , NORMAL FIRST 11/22/2013 MAY DO, BALDOMERO K 649.00 COMPL OF - TOBACCO USE 11/22/2013 MAY DO, BALDOMERO K V22.0 , NORMAL FIRST 11/22/2013 MAY DO, BALDOMERO K 649.00 COMPL OF - TOBACCO USE 11/22/2013 MAY DO, BALDOMERO K V22.0 , NORMAL FIRST 11/22/2013 MAY DO, BALDOMERO K 649.00 COMPL OF - TOBACCO USE 11/22/2013 MAY DO, BALDOMERO K V22.0 , NORMAL FIRST 11/22/2013 MAY DO, BALDOMERO K 649.00 COMPL OF - TOBACCO USE 11/22/2013 MAY DO, BALDOMERO K V22.0 , NORMAL FIRST 11/22/2013 MAY DO, BALDOMERO K 649.00 COMPL OF - TOBACCO USE 11/22/2013 MAY DO, BALDOMERO K V22.0 , NORMAL FIRST 11/22/2013 MAY DO, BALDOMERO K 649.00 COMPL OF - TOBACCO USE 11/22/2013 MAY DO, BALDOMERO K V22.0 , NORMAL FIRST 11/22/2013 MAY DO, BALDOMERO K 649.00 COMPL OF - TOBACCO USE 11/22/2013 MAY DO, BALDOMERO K V22.0 , NORMAL FIRST 11/22/2013 MAY DO, BALDOMERO K 649.00 COMPL OF - TOBACCO USE 11/22/2013 MAY DO, BALDOMERO K V22.0 , NORMAL FIRST 11/22/2013 MAY DO, BALDOMERO K 649.00 COMPL OF - TOBACCO USE 11/22/2013 MAY DO, BALDOMERO K V22.0 , NORMAL FIRST 11/25/2013 LUL CANTRELL APRN Ot 599.0 URIN TRACT INFECTION NOS 11/25/2013 LUL CANTRELL SEXUAL ASSAULT COUNSELOR Ot 646.63 INFECTION-ANTEPARTUM 11/25/2013 LUL CANTRELL SEXUAL ASSAULT COUNSELOR Ot 648.93 OTH CURR COND-ANTEPARTUM 11/25/2013 CANTRELLLUL KEANE SEXUAL ASSAULT COUNSELOR Ot 682.6 CELLULITIS OF LEG 12/20/2013 LORETTA SEXUAL ASSAULT COUNSELOR, ALBA A V22.1 , NORMAL OTHER 12/20/2013 LORETTA SEXUAL ASSAULT COUNSELOR, ALBA A V74.5 STD SCREEN 12/20/2013 LORETTA MEANSN, ALBA A V76.2 CERVICAL CANCER SCREENING (PAP SMEAR) 12/20/2013 MAY DO, BALDOMERO K V22.1 , NORMAL OTHER 12/20/2013 MAY DO, BALDOMERO K V74.5 STD SCREEN 12/20/2013 MAY DO, BALDOMERO K V76.2 CERVICAL CANCER SCREENING (PAP SMEAR) 12/20/2013 MAY DO, BALDOMERO K V22.1 , NORMAL OTHER 12/20/2013 MAY DO, BALDOMERO K V74.5 STD SCREEN 12/20/2013 MAY DO, BALDOMERO K V76.2 CERVICAL CANCER SCREENING (PAP SMEAR) 12/20/2013 NAVA DDSTADEO V22.1 , NORMAL OTHER 12/20/2013 NAVA DDS TADEO V74.5 STD SCREEN 12/20/2013 NAVA DDS, TADEO V76.2 CERVICAL CANCER SCREENING (PAP SMEAR) 12/20/2013 MAY DO, BALDOMERO K V22.1 , NORMAL OTHER 12/20/2013 MAY DO, BALDOMERO K V74.5 STD SCREEN 12/20/2013 MAY DO, BALDOMERO K V76.2 CERVICAL CANCER SCREENING (PAP SMEAR) 12/20/2013 MAY DO, BALDOMERO K V22.1 , NORMAL OTHER 12/20/2013 MAY DO, BALDOMERO K V74.5 STD SCREEN 12/20/2013 MAY DO, BALDOMERO K V76.2 CERVICAL CANCER SCREENING (PAP SMEAR) 12/20/2013 MAY DO, BALDOMERO K V22.1 , NORMAL OTHER 12/20/2013 MAY DO, BALDOMERO K V74.5 STD SCREEN 12/20/2013 MAY DO, BALDOMERO K V76.2 CERVICAL CANCER SCREENING (PAP SMEAR) 12/20/2013 MAY DO, BALDOMERO K V22.1 , NORMAL OTHER 12/20/2013 MAY DO, BALDOMERO K V74.5 STD SCREEN 12/20/2013 MAY DO, BALDOMERO K V76.2 CERVICAL CANCER SCREENING (PAP SMEAR) 12/20/2013 MAY DO, BALDOMERO K V22.1 , NORMAL OTHER 12/20/2013 MAY DO, BALDOMERO K V74.5 STD SCREEN 12/20/2013 MAY DO, BALDOMERO K V76.2 CERVICAL CANCER SCREENING (PAP SMEAR) 12/20/2013 MAY DO, BALDOMERO K V22.1 , NORMAL OTHER 12/20/2013 MAY DO, BALDOMERO K V74.5 STD SCREEN 12/20/2013 MAY DO, BALDOMERO K V76.2 CERVICAL CANCER SCREENING (PAP SMEAR) 12/20/2013 MAY DO, BALDOMERO K V22.1 , NORMAL OTHER 12/20/2013 MAY DO, BALDOMERO K V74.5 STD SCREEN 12/20/2013 MAY DO, BALDOMERO K V76.2 CERVICAL CANCER SCREENING (PAP SMEAR) 12/20/2013 MAY DO, BALDOMERO K V22.1 , NORMAL OTHER 12/20/2013 MAY DO, BALDOMERO K V74.5 STD SCREEN 12/20/2013 MAY DO BALDOMERO K V76.2 CERVICAL CANCER SCREENING (PAP SMEAR) 12/20/2013 MAY DO, BALDOMERO K V22.1 , NORMAL OTHER 12/20/2013 MAY DO, BALDOMERO K V74.5 STD SCREEN 12/20/2013 MAY DO, BALDOMERO K V76.2 CERVICAL CANCER SCREENING (PAP SMEAR) 12/20/2013 MAY DO, BALDOMERO K V22.1 , NORMAL OTHER 12/20/2013 MAY DO, BALDOMERO K V74.5 STD SCREEN 12/20/2013 MAY DO BALDOMERO K V76.2 CERVICAL CANCER SCREENING (PAP SMEAR) 12/20/2013 MAY DO BALDOMERO K V22.1 , NORMAL OTHER 12/20/2013 MAY DO, BALDOMERO K V74.5 STD SCREEN 12/20/2013 MAY DO, BALDOMERO K V76.2 CERVICAL CANCER SCREENING (PAP SMEAR) 03/26/2014 MAY DO, BALDOMERO K 641.00 PLACENTA PREVIA 03/26/2014 MAY DO, BALDOMERO K 641.00 PLACENTA PREVIA 03/26/2014 MAY DO, BALDOMERO K 641.00 PLACENTA PREVIA 03/26/2014 MAY DO, BALDOMERO K 641.00 PLACENTA PREVIA 03/26/2014 MAY DO, BALDOMERO K 641.00 PLACENTA PREVIA 03/26/2014 MAY DO, BALDOMERO K 641.00 PLACENTA PREVIA 03/26/2014 MAY DO, BALDOMERO K 641.00 PLACENTA PREVIA 03/26/2014 AMY DO, BALDOMERO K 641.00 PLACENTA PREVIA 03/26/2014 MAY DO, BALDOMERO K 641.00 PLACENTA PREVIA 03/26/2014 MAY DO, BALDOMERO K 641.00 PLACENTA PREVIA 03/26/2014 MAY DO, BALDOMERO K 641.00 PLACENTA PREVIA 05/08/2014 MAY DO, BALDOMERO K V06.1 TDAP DX 05/08/2014 MAY DO, BALDOMERO K V77.1 DIABETES SCREENING 05/08/2014 MAY DO, BALDOMERO K V78.0 ANEMIA SCREENING 05/08/2014 MAY DO, BALDOMERO K V06.1 TDAP DX 05/08/2014 MAY DO, BALDOMERO K V77.1 DIABETES SCREENING 05/08/2014 MAY DO, BALDOMERO K V78.0 ANEMIA SCREENING 05/08/2014 MAY DO, BALDOMERO K V06.1 TDAP DX 05/08/2014 MAY DO, BALDOMERO K V77.1 DIABETES SCREENING 05/08/2014 MAY DO, BALDOMERO K V78.0 ANEMIA SCREENING 05/08/2014 MAY DO, BALDOMERO K V06.1 TDAP DX 05/08/2014 MAY DO, BALDOMERO K V77.1 DIABETES SCREENING 05/08/2014 MAY DO, BALDOMERO K V78.0 ANEMIA SCREENING 05/08/2014 MAY DO, BALDOMERO K V06.1 TDAP DX 05/08/2014 MAY DO, BALDOMERO K V77.1 DIABETES SCREENING 05/08/2014 MAY DO, BALDOMERO K V78.0 ANEMIA SCREENING 05/08/2014 MAY DO, BALDOMERO K V06.1 TDAP DX 05/08/2014 MAY DO, BALDOMERO K V77.1 DIABETES SCREENING 05/08/2014 MAY DO, BALDOMERO K V78.0 ANEMIA SCREENING 05/08/2014 MAY DO, BALDOMERO K V06.1 TDAP DX 05/08/2014 MAY DO, BALDOMERO K V77.1 DIABETES SCREENING 05/08/2014 MAY DO, BALDOMERO K V78.0 ANEMIA SCREENING 05/08/2014 MAY DO, BALDOMERO K V06.1 TDAP DX 05/08/2014 MAY DOBALDOMERO V77.1 DIABETES SCREENING 05/08/2014 MYNOR MAY DONikita Yates V78.0 ANEMIA SCREENING 05/08/2014 YADIRA SILVABALDOMERO V06.1 TDAP DX 05/08/2014 MYNOR MAY DONikita Yates V77.1 DIABETES SCREENING 05/08/2014 MYNOR MAY DONikita Yates V78.0 ANEMIA SCREENING 07/12/2014 MAY BALDOMERO SILVA Ot V89.02 07/12/2014 BALDOMERO MAY DO Ot V89.03 07/15/2014 LINDA CONN, JOHN Rosenberg Ot 288.60 LEUKOCYTOSIS, UNSPECIFIED 07/15/2014 LINDA CONN, JOHN Rosenberg Ot 648.91 OTH CURR COND-DELIVERED 07/15/2014 JOHN MCKEON MD Ot V27.0 DELIVER-SINGLE LIVEBORN 09/02/2014 BALDOMERO MAY DO V24.2 F/U, ROUTINE 09/02/2014 BALDOMERO MAY DO V25.9 CONTRACEPTION MANAGEMENT 09/02/2014 BALDOMERO MAY DO V24.2 F/U, ROUTINE 09/02/2014 BALDOMERO MAY DO V25.9 CONTRACEPTION MANAGEMENT 04/12/2016 Ot 656.13 RH ISOIMMUNIZAT-ANTEPART 04/12/2016 Ot V22.1 SUPERVIS OTH NORMAL PREG 04/12/2016 Ot V89.03 SUSPECTED ANOMALY NOT FOUND 04/12/2016 Ot V07.2 PROPHYLACT IMMUNOTHERAPY 04/12/2016 ALBA BURGOS S[employer] ASSAULT COUNSELOR Ot 641.93 ANTEPART HEM NOS-ANTEPAR 04/12/2016 ALBA BURGOS [employer] ASSA[employer] COUNSELOR Ot 649.03 TOBACCO USE DISOR COMP PREG/CHILDBIRTH/P 04/12/2016 ALBA BURGOS S[employer] ASSAULT COUNSELOR Ot V28.81 ENCOUNTER FOR ANATOMIC SURVEY 04/12/2016 BALDOMERO MAY DO Ot 641.13 PLACEN PREV HEM-ANTEPART 04/12/2016 BALDOMERO MAY DO Ot 656.13 RH ISOIMMUNIZAT-ANTEPART 04/12/2016 BALDOMERO MAY DO Ot V28.81 ENCOUNTER FOR ANATOMIC SURVEY 04/12/2016 Ot 641.03 PLACENTA PREVIA-ANTEPART 04/12/2016 BALDOMERO MAY DO Ot V89.02 SUSPECTED PLACENTAL PROBLEM NOT FOUND 04/12/2016 BALDOMERO MAY DO Ot V89.03 SUSPECTED ANOMALY NOT FOUND 04/14/2016 BALDOMERO MAY DO Ot Z34.91 ENCNTR FOR SUPRVSN OF NORMAL PREG, UNSP, 05/05/2016 BALDOMERO MAY DO Ot Z34.91 ENCNTR FOR SUPRVSN OF NORMAL PREG, UNSP, 06/14/2016 Ot 656.13 RH

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
[2018-10-03] MEDS ORDERED: ORPHENADRINE 60 MG/2 ML (NORFLEX) AMP IM ONE (13:45)
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
[2018-10-03] MEDS ORDERED: CYCL10TA9 PO (14:21)
[2018-10-03 14:41] VITALS: BP 103/63
== END 2018-10-03 14:41 | disposition home or self-care (01) ==
LOC: EDUNIT# 12:56 → ER 12:57
DX: S13.4XXA Sprain of ligaments of cervical spine, initial encounter (principal); F17.210 Nicotine dependence, cigarettes, uncomplicated; Z98.890 Other specified postprocedural states; Z85.41 Personal history of malignant neoplasm of cervix uteri; Z80.0 Family history of malignant neoplasm of digestive organs; V43.52XA Car driver injured in collision with other type car in traffic accident, initial encounter
CPT/HCPCS: 72125; 72128

== ENCOUNTER 2019-12-02 13:00 | Emergency (ER) | payer MEDICAID ==
[~2019-12-02] VITALS: Ht 162 cm; Wt 54.4 kg
[~2019-12-02 13:00] MED LIST changes: +CYCL10TA9 PO
[2019-12-02] MEDS ORDERED: IBUPROFEN 800 MG (MOTRIN) TAB PO STA (13:18)
--- NOTE | 2019-12-02 13:20 | ED EENT ---
History of Present Illness General Chief Complaint: Head/Cervical Problems Stated Complaint: R SIDE NECK SWOLLEN History of Present Illness Date Seen by Provider: Dec 02, 2019 Time Seen by Provider: 13:10 Initial Comments 39-year-old female presents for right jaw and ear pain. She states the symptoms started yesterday. She has not taken any medication for her symptoms. She denies fever or difficulty chewing/swallowing. Timing/Duration: yesterday Severity: moderate Location: facial (right jaw) Prearrival Treatment: no prearrival treatment Associated Symptoms: denies symptoms Allergies and Home Medications Allergies Coded Allergies: No Known Drug Allergies (Verified , 10/30/16) Home Medications Cyclobenzaprine HCl 10 Mg Tablet, 10 MG PO Q8H PRN for MUSCLE SPASMS Prescribed by: MEENA HAM on 10/03/18 1421 Patient Home Medication List Home Medication List Reviewed: Yes Review of Systems Review of Systems Constitutional: no symptoms reported, see HPI; No fever Ears: No Symptoms Reported, See HPI, Pain (mild radiating from jaw to right ) Mouth: see HPI, pain (right jaw over TMJ) All Other Systems Reviewed Negative Unless Noted: Yes Past Umlnqqs-Kpfjlo-Xoacot Hx Past Med/Social Hx: Reviewed Nursing Past Med/Soc Hx Patient Social History Alcohol Use: Denies Use Recreational Drug Use: No (1/2 PPD SMOKER) Smoking Status: Current Everyday Smoker Type Used: Cigarettes Recent Foreign Travel: No Contact w/Someone Who Travel: No Recent Hopitalizations: No Physical Abuse: No Sexual Abuse: No Mistreated: No Fear: No Immunizations Up To Date Tetanus Booster (TDap): Less than 5yrs Date of Influenza Vaccine: May 24, 2016 Seasonal Allergies Seasonal Allergies: No Past Medical History Surgeries: Yes (Hx of LEEP) Respiratory: No Cardiac: No Neurological: No Reproductive Disorders: No HIV/AIDS: No Genitourinary: No Gastrointestinal: No Musculoskeletal: No Endocrine: No HEENT: No Cancer: No Cervical Psychosocial: No Integumentary: No Blood Disorders: No Adverse Reaction/Blood Tranf: No Family Medical History Arthritis (on mother's and father's side of family) Cardiovascular disease (uncles on mother's side of family) Diabetes mellitus (uncles on mother's side of family) FH: cancer (liver CA- uncle skin CA) Respiratory disorder (COPD- mother ) Physical Exam Vital Signs Vital Signs - First Documented 12/02/19 13:11 Temp 36.4 Pulse 102 Resp 18 B/P (MAP) 132/78 (96) Pulse Ox 98 Height, Weight, BMI Height: 5'5.00" Weight: 168lbs. 2.0oz. 76.232884qu; 30.1 BMI Method:Stated General Appearance: WD/WN, no apparent distress Eyes: bilateral eye normal inspection, bilateral eye PERRL, bilateral eye EOMI Ears: right ear other (tender over TMJ right, no click or pop, full ROM); bilateral ear auricle normal, bilateral ear canal normal, bilateral ear TM normal Nose: normal inspection; No discharge Mouth/Throat: normal mouth inspection, pharynx normal; No dental tenderness, No excessive drooling, No maxillary swelling, No pharynx tenderness, No tonsillar exudate Neck: full range of motion, supple, normal inspection Cardiovascular: normal peripheral pulses, regular rate, rhythm Respiratory: chest non-tender, lungs clear, normal breath sounds Gastrointestinal: normal bowel sounds, soft Neurologic/Psychiatric: no motor/sensory deficits, alert, normal mood/affect, oriented x 3 Progress/Results/Core Measures Results/Orders My Orders Orders - TESHA BYRNES Ibuprofen Tablet (Motrin Tablet) (12/02/19 13:18) Vital Signs/I&O 12/02/19 13:11 Temp 36.4 Pulse 102 Resp 18 B/P (MAP) 132/78 (96) Pulse Ox 98 Departure Impression Primary Impression: Temporomandibular joint arthralgia Qualified Codes: M26.621 - Arthralgia of right temporomandibular joint Disposition: 01 HOME, SELF-CARE Condition: Improved Departure-Patient Inst. Decision time for Depature: 13:20 Referrals: [facility] (PCP/Family) Primary Care Physician Patient Instructions: Temporomandibular Joint (TMJ) Disorders (DC) Add. Discharge Instructions: Alternate heat and ice to right jaw every 2 hours for 20 minutes. Alternate between ibuprofen 600 mg and Tylenol 650 mg every 4 hours for pain and swelling. Follow-up with your primary care provider if symptoms are not improving in 5-7 days, sooner if symptoms worsen. Return to the emergency department for new, urgent health care needs. All discharge instructions reviewed with patient and/or family. Voiced understanding. TESHA BYRNES Dec 02, 2019 13:20
[2019-12-02 13:29] VITALS: BP 132/78
== END 2019-12-02 13:29 | disposition home or self-care (01) ==
LOC: EDUNIT# 13:00 → ER 13:01
DX: M26.621 Arthralgia of right temporomandibular joint (principal); F17.210 Nicotine dependence, cigarettes, uncomplicated; Z80.0 Family history of malignant neoplasm of digestive organs; Z80.8 Family history of malignant neoplasm of other organs or systems
CPT/HCPCS: 99283